=== PATIENT | male | born 1965 | race Caucasian/White ===

== ENCOUNTER → 2016-09-15 | Outpatient (CLI) | payer OTHER ==
[~2016-09-15] MED LIST: CEPH500C2 PO; ENAL10TA88 PO; HYDR-5688 PO
[2016-09-15 15:56] LABS: PARTIAL THROMBOPLASTIN RATIO 1.1; PROTHROMBIN TIME (PATIENT) 10.9 SECONDS (9.0-12.0)
[2016-09-15 16:10] LABS: BASO % 0.6 %; BASO ABS # 0.02 K/uL (0-0.2); COMPLETE YES; EOS % 3.6 %; HEMATOCRIT 34.1 % (42-52); IG% 0.6 %; LYMPH ABS # 1.32 K/uL (1.2-3.4); MEAN CELL VOLUME 85.3 fL (80-100); MEAN CORPUSCULAR HGB CONC 35.2 g/dl (32-36); MEAN PLATELET VOLUME 9.1 fL (7.4-10.4); MONO % 7.8 %; NEUT % 50.4 %; PLATELET COUNT 65 K/uL (130-400); PLT ESTIMATE DECREASED; WHITE BLOOD COUNT 3.57 K/uL (4.8-10.8)
[2016-09-15 16:24] LABS: BLOOD UREA NITROGEN 18 mg/dl (7-18); BUN/CREATININE RATIO 20.1 (10-20); CARBON DIOXIDE 20 mmol/L (21-32); CHLORIDE 108 mmol/L (98-107); CREATININE 0.88 mg/dl (0.60-1.40); GLUCOSE 171 mg/dl (70-99); SODIUM 140 mmol/L (136-145)
[2016-09-15 16:44] LABS: CALCIUM 8.9 mg/dl (8.5-10.1)
[2016-09-15 19:15] LABS: URINE APPEARANCE CLEAR (CLEAR); URINE COLOR DK YELLOW; URINE NITRITE NEG (NEG); URINE SPECIFIC GRAVITY 1.035 (1.000-1.030); UROBILINOGEN NEG (NEG)
[2016-09-15 19:21] LABS: MANUAL MICROSCOPIC REQUIRED? NO; REVIEW REQ? NO; URINE BILIRUBIN NEG (NEG)
== END | disposition home or self-care (01) ==
LOC: C.LAB 15:03
DX: M71.121 Other infective bursitis, right elbow (principal)

== ENCOUNTER → 2016-09-18 | Day surgery (SDC) | payer OTHER ==
--- NOTE | 2016-09-17 12:51 | HISTORY & PHYSICAL EXAMINATION ---
DATE OF ADMISSION: 09/18/2016 CHIEF COMPLAINT: Recurrent right elbow wound drainage. HISTORY OF PRESENT ILLNESS: The patient is a 51-year-old gentleman approximately 11 months status post surgical excision of olecranon bursitis of his right elbow. He states it never completely quit draining postoperatively but more recently presented for evaluation due to increased swelling and drainage. He had a short trial of oral antibiotics and continues to have an open wound. He is now scheduled for an I&D of the right elbow. PAST MEDICAL HISTORY: Hypertension, low back pain. PAST SURGICAL HISTORY: Right elbow as above, otherwise unknown. MEDICATIONS: Percocet for back pain. ALLERGIES: No known drug allergies. SOCIAL HISTORY: He states a [id number] smoking history and daily alcohol use. PHYSICAL EXAMINATION: GENERAL: Well-nourished, well-developed male who appears older than his stated age. He smells of tobacco use. HEAD, EYES, EARS, NOSE, AND THROAT: Normocephalic, atraumatic. Extraocular movements intact. Oropharynx pink and moist. NECK: Supple without adenopathy. LUNGS: Clear to auscultation bilaterally. HEART: Regular rate and rhythm. ABDOMEN: Soft, nontender, nondistended. EXTREMITIES: The right elbow demonstrates a previous scar from his previous olecranon bursectomy. The central portion has approximately 1 cm central opening present. There is no purulent drainage. ASSESSMENT: Chronic wound drainage right elbow status post previous olecranon bursectomy. PLAN: The above discussed with patient. We would recommend a surgical I&D and several days of IV antibiotics in the hospital. Will proceed as indicated.
[~2016-09-18] MED LIST changes: +LACTATED RINGER'S 1000ML 1,000 ML IV SCH
== END | disposition home or self-care (01) ==
LOC: C.ACU 10:29
DX: S51.001A Unspecified open wound of right elbow, initial encounter (principal); Y84.8 Other medical procedures as the cause of abnormal reaction of the patient, or of later complication, without mention of misadventure at the time of the procedure; Z53.09 Procedure and treatment not carried out because of other contraindication; I10 Essential (primary) hypertension; M54.5 Low back pain; F17.200 Nicotine dependence, unspecified, uncomplicated

== ENCOUNTER 2019-07-06 14:16 | Inpatient (IN) ==
[2019-07-06] MEDS ORDERED: ONDANSETRON INJ 2 MG/ML 2 ML VIAL IV STA (14:38)
[2019-07-06] MEDS ORDERED: MoRPHine SULFATE 4 MG/ML 1 ML CARP\\VIAL IV STA (14:38)
--- NOTE | 2019-07-06 14:43 | Emergency Department Note ---
History of Present Illness General Chief complaint: GI Assessment Stated complaint: vomiting blood, abdominal pain Time Seen by Provider: 07/06/19 14:28 Source: patient Mode of arrival: ambulatory Limitations: no limitations History of Present Illness Maximum Pain Intensity: 10 This patient comes in as described above he has epigastric abdominal pain is been vomiting for several days he says it looks black. He is also had black stool. He denies that he is on any blood thinners been taking any NSAIDs. He did take half a Percocet on the way out but denies that he normally takes those meds. He has not had any alcohol for over 6 months and tells me he never was a significantly heavy drinker. No trauma. He does have some chronic back issues. No abdominal surgeries. Denies chest pain or shortness of breath. No sick contacts or fever. Home Medications Home Medications Medication Instructions Recorded Confirmed Type enalapril maleate 20 mg PO QAM 07/06/19 07/06/19 History Allergies Allergy/AdvReac Type Severity Reaction Status Date / Time No Known Allergies Allergy Unverified 07/06/19 16:45 Past Med/Surg History Medical History Alcohol use Atrial flutter (Acute) Chronic hepatitis C Cirrhosis H/O intravenous drug use in remission Tobacco use Family History (Updated 07/06/19 @ 18:52 by Monty Spivey) Other Family history non-contributory Social History (Updated 07/06/19 @ 18:53 by Monty Spivey) Preferred Language: Luxembourgish Communication Ability: Effective Stripping Cutter And Winder Required: No Beliefs That Will Affect Care: None Current Living Situation: Significant Other Current Living Situation Comment: lives in [place] Other Information That Helps Us Care for You: No Feels Safe at Home: Yes Safety Concerns: Feels Safe At This Time Smoking Status: Current every day smoker Tobacco Type: cigarettes ; Cigarettes Per Day: 4 ; Do You Dip or Chew Tobacco: No ; Second Hand Exposure: No ; Tobacco Cessation Education Requested by Patient: Yes Hx Alcohol Use: No (Quit 7 months ago) Hx Substance Use: No Immunizations: Additional past medical/surgical history: Patient has not been here in the recent past. He tells me he does have a past medical history of hypertension but denies any history of GI bleed or abdominal surgery. He does have a surgical history on his back. He does smoke but does not drink. Review of Systems A total of 10 systems reviewed and were otherwise negative Physical Exam Vital Signs Vital Signs - 24 hr 07/06/19 14:21 07/06/19 14:52 07/06/19 14:57 Temperature 36.5 C Temperature Source Oral Pulse Rate 152 H 150 H 151 H Pulse Rate from SpO2 Sensor 151 H 151 H Respiratory Rate 20 17 15 Respiratory Depth Normal Blood Pressure 130/90 122/100 Blood Pressure Mean 103 106 Blood Pressure Position Sitting Pulse Oximetry 100 100 100 Oxygen Delivery Method Room Air Sepsis Recent Fever Within 48 Hours No Sepsis Action Taken by Nursing No Action Required 07/06/19 15:00 07/06/19 15:01 07/06/19 15:30 Temperature Temperature Source Pulse Rate 150 H 150 H 147 H Pulse Rate from SpO2 Sensor 151 H 151 H Respiratory Rate 20 15 Respiratory Depth Blood Pressure 124/103 H 131/95 Blood Pressure Mean 107 100 Blood Pressure Position Pulse Oximetry 99 100 Oxygen Delivery Method Sepsis Recent Fever Within 48 Hours Sepsis Action Taken by Nursing 07/06/19 16:21 07/06/19 16:30 Temperature Temperature Source Pulse Rate 143 H 146 H Pulse Rate from SpO2 Sensor 144 H 145 H Respiratory Rate 17 21 Respiratory Depth Blood Pressure 133/94 Blood Pressure Mean 114 Blood Pressure Position Pulse Oximetry 99 100 Oxygen Delivery Method Sepsis Recent Fever Within 48 Hours Sepsis Action Taken by Nursing General: Well developed well nourished uncomfortable/moderate ill-appearing middle-age male who appears in no acute aspiratory distress, breathing comfortably on room air. Normal speech HEENT: Normal cephalic atraumatic. Pupils are equal round and reactive to light. Sclera anicteric. Extraocular movements are intact. Oropharynx is pink with moist mucous membranes. No swelling of the mouth lips or tongue. Neck: Supple with a midline trachea. No meningeal signs or stiffness, no JVD or bruits. No Stridor. Chest: Clear to auscultation bilaterally. No wheezes or rhonchi. No increased work of breathing. Heart: Regular rate and rhythm without murmurs or gallops. Abdomen: Soft, moderately tender to palpation in the epigastric area, nondistended without rebound guarding or rigidity. Extremities: No cyanosis clubbing or edema. No calf tenderness or assymetry Spine/Back. Non tender to palpation. No CVA tenderness Skin: Good turgor without rashes. Neurologic exam: Cranial nerves two through 12 are intact. Motor and sensation are intact and symmetrical throughout. Course Administered Medications Esmolol HCl (Brevibloc) 2,500 mg in 250 mls @ 73.62 mls/hr IV .Q3H24M LOUIS; Protocol Stop: 08/05/19 16:14 Last Titration: 07/06/19 17:52 Dose: 150 mcg/kg/min, 73.6 mls/hr Documented by: [id number] Titration: 07/06/19 16:59 Dose: 100 mcg/kg/min, 49.1 mls/hr Documented by: [id number] Admin: 07/06/19 16:46 Dose: 50 mcg/kg/min, 24.5 mls/hr Documented by: [id number] Cosigned by: [id number] Ioversol (Optiray 320 100ml) 94 ml IV ONCE PRN PRN Reason: Interaction Checking Stop: 07/10/19 16:07 Last Admin: 07/06/19 16:08 Dose: 94 ml Documented by: [id number] Discontinued Medications Esmolol HCl (Brevibloc Bolus From Bag) 40 mg IV ONE ONE Stop: 07/06/19 16:16 Last Admin: 07/06/19 16:44 Dose: 40 mg Documented by: [id number] Cosigned by: [id number] Hydromorphone HCl (Dilaudid) 1 mg IV NOW STA Stop: 07/06/19 15:09 Last Admin: 07/06/19 15:16 Dose: 1 mg Documented by: [id number] Pantoprazole Sodium 80 mg/ (Dextrose) 120 mls @ 480 mls/hr IV NOW ONE Stop: 07/06/19 14:59 Last Infusion: 07/06/19 15:25 Dose: 0 mls/hr Documented by: [id number] Admin: 07/06/19 15:04 Dose: 480 mls/hr Documented by: [id number] Pantoprazole Sodium 40 mg/ (Dextrose) 100 mls @ 20 mls/hr IV Q5H LOUIS Stop: 08/05/19 14:44 Last Admin: 07/06/19 15:25 Dose: 8 mg/hr, 20 mls/hr Documented by: [id number] Sodium Chloride (Nss 1000ml) 1,000 mls @ 999 mls/hr IV .Q1H1M LOUIS Stop: 07/06/19 15:45 Last Infusion: 07/06/19 16:13 Dose: 0 mls/hr Documented by: [id number] Admin: 07/06/19 15:04 Dose: 999 mls/hr Documented by: [id number] Sodium Chloride (Nss 1000ml) 1,000 mls @ 999 mls/hr IV .Q1H1M ONE Stop: 07/06/19 16:08 Last Infusion: 07/06/19 16:13 Dose: 0 mls/hr Documented by: [id number] Admin: 07/06/19 15:11 Dose: 999 mls/hr Documented by: [id number] Morphine Sulfate (Morphine Sulfate) 4 mg IV NOW STA Stop: 07/06/19 14:39 Last Admin: 07/06/19 15:03 Dose: 4 mg Documented by: [id number] Ondansetron HCl (Zofran) 4 mg IV NOW STA Stop: 07/06/19 14:39 Last Admin: 07/06/19 15:04 Dose: 4 mg Documented by: [id number] Critical Care Time Critical Care Time: Yes Total Critical Care Time: 45 Because of the patient's GI bleed, A. fib/tachycardia and need for multiple IV medications and intervention as well as transfusion, I have personally spent greater than 45 minutes of critical care time in the direct management of this patient. This includes bedside care, interpretation of diagnostic studies, and testing, discussion with consultants, patient, and family members, and other required patient management activities. This 45 minutes is in excess of all separately billable procedures. Medical Decision Making Differential Diagnosis Includes but is not limited to: GI bleed, anemia, peptic ulcer disease, variceal bleeding, toxicologic, electrolyte or metabolic abnormality, cardiac disease, trauma Medical Records Attestation: I reviewed the patient's medical records. There were no old records immediately available for review Home Medications Current Medication List: was personally reviewed by [id number] Laboratory Data Attestation: I reviewed the patient's lab results. Result diagrams: 07/06/19 14:51 07/06/19 14:51 Lab Results 07/06/19 07/06/19 07/06/19 Range/Units 14:51 14:51 14:51 WBC 10.15 (4.8-10.8) K/uL RBC 3.25 L (4.7-6.1) M/uL Hgb 8.5 L (14.0-18.0) g/dL Hct 25.3 L (42-52) % MCV 77.8 L (80-100) fL MCH 26.2 (25-34) pg MCHC 33.6 (32-36) g/dL RDW Std Deviation 46.2 (36.4-46.3) fL RDW Coeff of Saurav 16.3 H (11.5-14.5) % Plt Count 238 (130-400) K/uL MPV 9.3 (7.4-10.4) fL Immature Gran % (Auto) 0.3 % Neut % (Auto) 67.2 % Lymph % (Auto) 24.5 % [place] % (Auto) 6.3 % Eos % (Auto) 1.3 % Baso % (Auto) 0.4 % Immature Gran # (Auto) 0.03 H (0.00-0.02) K/uL Neut # (Auto) 6.82 H (1.4-6.5) K/uL Lymph # (Auto) 2.49 (1.2-3.4) K/uL [place] # (Auto) 0.64 H (0.11-0.59) K/uL Eos # (Auto) 0.13 (0-0.5) K/uL Baso # (Auto) 0.04 (0-0.2) K/uL PT (9.0-12.0) Seconds INR (0.9-1.1) Sodium 133 L (136-145) mmol/L Potassium 4.6 (3.5-5.1) mmol/L Chloride 102 (98-107) mmol/L Carbon Dioxide 27 (21-32) mmol/L Anion Gap 4.0 (3-11) BUN 43 H (7-18) mg/dl Creatinine 0.97 (0.6-1.4) mg/dl Est Cr Clr Drug Dosing Not Reportable Est GFR ( Amer) 100.7 Est GFR (Non-Af Amer) 86.9 BUN/Creatinine Ratio 44.8 H (10-20) Glucose 177 H (70-99) mg/dl Calcium 8.5 (8.5-10.1) mg/dl Magnesium 2.4 (1.8-2.4) mg/dl Total Bilirubin 0.5 (0.2-1) mg/dl AST 19 (15-37) U/L ALT 36 (12-78) U/L Alkaline Phosphatase 89 (45-117) U/L Total Protein 6.0 L (6.4-8.2) gm/dl Albumin 2.4 L (3.4-5.0) gm/dl Globulin 3.6 (2.5-4.0) gm/dl Albumin/Globulin Ratio 0.7 L (0.9-2) Lipase 425 H (73-393) U/L Blood Type A Positive Antibody Screen NEGATIVE Crossmatch See Detail 07/06/19 Range/Units 14:52 WBC (4.8-10.8) K/uL RBC (4.7-6.1) M/uL Hgb (14.0-18.0) g/dL Hct (42-52) % MCV (80-100) fL MCH (25-34) pg MCHC (32-36) g/dL RDW Std Deviation (36.4-46.3) fL RDW Coeff of Saurav (11.5-14.5) % Plt Count (130-400) K/uL MPV (7.4-10.4) fL Immature Gran % (Auto) % Neut % (Auto) % Lymph % (Auto) % [place] % (Auto) % Eos % (Auto) % Baso % (Auto) % Immature Gran # (Auto) (0.00-0.02) K/uL Neut # (Auto) (1.4-6.5) K/uL Lymph # (Auto) (1.2-3.4) K/uL [place] # (Auto) (0.11-0.59) K/uL Eos # (Auto) (0-0.5) K/uL Baso # (Auto) (0-0.2) K/uL PT 10.8 (9.0-12.0) Seconds INR 1.0 (0.9-1.1) Sodium (136-145) mmol/L Potassium (3.5-5.1) mmol/L Chloride (98-107) mmol/L Carbon Dioxide (21-32) mmol/L Anion Gap (3-11) BUN (7-18) mg/dl Creatinine (0.6-1.4) mg/dl Est Cr Clr Drug Dosing Est GFR ( Amer) Est GFR (Non-Af Amer) BUN/Creatinine Ratio (10-20) Glucose (70-99) mg/dl Calcium (8.5-10.1) mg/dl Magnesium (1.8-2.4) mg/dl Total Bilirubin (0.2-1) mg/dl AST (15-37) U/L ALT (12-78) U/L Alkaline Phosphatase (45-117) U/L Total Protein (6.4-8.2) gm/dl Albumin (3.4-5.0) gm/dl Globulin (2.5-4.0) gm/dl Albumin/Globulin Ratio (0.9-2) Lipase (73-393) U/L Blood Type Antibody Screen Crossmatch ECG Data Attestation: I personally reviewed and interpreted this ECG as follows: Indication: + abdominal pain MDM Narrative This patient comes in as described above. He was placed in room C9. He is here for treatment and evaluation of abdominal pain. He is also been throwing up black material he tells me. He is tachycardic but normotensive. He appears uncomfortable he is moderately tender in epigastric area. He does have a remote history of drinking. IV access established he was hydrated with a 1 L IV normal saline bolus. He was typed and screened in the event that he needed blood. He was given a Protonix IV drip and bolus. EKG chest x-ray multiple blood testing was obtained. He was reassessed frequently. He did have morphine 4 mg IV and Zofran 4 mg IV for his pain. Despite this he continued pain was tachycardic we did do an EKG and actually looks more like flutter at a rate of 150. He did receive a second 1 L normal saline bolus I did a rectal exam and he has black stool that was guaiac positive. Despite having heart rate of 150 he does not have any palpitations or chest pain therefore I do not know how long he has been like this. At this point, he also with a GI bleed, he is not a good anticoagulation candidate. I did review his records that were obtained from [place]. Back in February his hemoglobin was 12.1. Today it is 8.5. He had been typed and screened I did order him to be typed and crossed and ordered a unit to be transfused. I am concerned with the fact he is very tachycardic. I did consent the patient for blood transfusion I explained the risk and the benefits at length and he freely consented both verbally and in writing. I also talked to Dr. Franco who reviewed his EKG and agrees is a flutter. I discussed this with our ED pharmacist, Lalitha, and we feel the safest drug for him system for rate control would be esmolol that way if his pressure drops, we can back off on this. I am also going to transfuse him. Patient was started on esmolol bolus and drip and has remained stable. His heart rate is trending downward in the 130s now. He has received IV fluids. I did order a CAT scan of his abdomen as well to rule out any internal bleeding or other abnormalities. CAT scan does not show any acute findings however he does have a cirrhotic liver. I did consult the [facility] hospitalist and they saw him in the ER and will be admitting him to the ICU. Cardiac monitoring, continuous-the patient was placed on continuous monitoring and evaluation advisor due to his tachycardia and pain. He was noted to be 150 and a narrow complex tachycardia consistent with a flutter Impression & Plan Acute GI bleeding, Melena, Epigastric abdominal pain, Nausea, Atrial flutter, Tachycardia Discharge Plan Visit Data Chief Complaint: GI Assessment Stated Complaint: vomiting blood, abdominal pain ED Provider: Renzo Rivas Discharge Problem: Acute GI bleeding, Melena, Epigastric abdominal pain, Nausea, Atrial flutter, Tachycardia Patient Disposition: Admitted As Inpatient Discharge Instructions Interventions: ED Discharge Assessment Last Done: 07/06/19 18:52 Discharge Problem: Atrial flutter Qualifiers: Atrial flutter type: unspecified Qualified Code(s): I48.92 - Unspecified atrial flutter
[2019-07-06] MEDS ORDERED: SODIUM CHLORIDE 0.9% 1000ML 1,000 ML IV SCH (14:45)
[2019-07-06] MEDS ORDERED: PANTOprazole 40 MG in DEXTROSE 5% 100 ML IV SCH (14:45)
[2019-07-06] MEDS ORDERED: PANTOprazole 80 MG in DEXTROSE 5% 100 ML IV ONE (14:45)
[2019-07-06] MEDS ORDERED: HYDROmorphone INJ 1 MG/ML SYRINGE IV STA (15:08)
[2019-07-06] MEDS ORDERED: SODIUM CHLORIDE 0.9% 1000ML 1,000 ML IV ONE (15:08)
[2019-07-06 15:22] LABS: Calcium 8.5 mg/dl (8.5-10.1); Chloride 102 mmol/L (98-107); Potassium 4.6 mmol/L (3.5-5.1); Sodium 133 mmol/L (136-145)
[2019-07-06 15:25] LABS: Alanine Aminotransferase 36 U/L (12-78); Albumin Level 2.4 gm/dl (3.4-5.0); Aspartate Aminotransferase 19 U/L (15-37); BUN Creatinine Ratio 44.8 (10-20); Blood Urea Nitrogen 43 mg/dl (7-18); Carbon Dioxide 27 mmol/L (21-32); Est GFR (African American) 100.7; Est GFR (Non-African American) 86.9; Glucose 177 mg/dl (70-99); Lipase 425 U/L (73-393)
[2019-07-06 15:28] LABS: Albumin Globulin Ratio 0.7 (0.9-2); Alkaline Phosphatase 89 U/L (45-117); Bilirubin,Total 0.5 mg/dl (0.2-1); Globulin 3.6 gm/dl (2.5-4.0); Magnesium 2.4 mg/dl (1.8-2.4)
[2019-07-06 15:42] LABS: Basophils # (auto) 0.04 K/uL (0-0.2); Basophils % (auto) 0.4 %; Eosinophils # (auto) 0.13 K/uL (0-0.5); Eosinophils % (auto) 1.3 %; Hematocrit (blood only) 25.3 % (42-52); Hemoglobin 8.5 g/dL (14.0-18.0); Immature Granulocytes # (auto) 0.03 K/uL (0.00-0.02); Immature Granulocytes % (auto) 0.3 %; Lymphocytes # (auto) 2.49 K/uL (1.2-3.4); Lymphocytes % (auto) 24.5 %; Mean Corpuscular Hemoglobin 26.2 pg (25-34); Mean Corpuscular Hgb Conc 33.6 g/dL (32-36); Mean Corpuscular Volume 77.8 fL (80-100); Mean Platelet Volume 9.3 fL (7.4-10.4); Monocytes # (auto) 0.64 K/uL (0.11-0.59); Monocytes % (auto) 6.3 %; Neutrophils # (auto) 6.82 K/uL (1.4-6.5); Neutrophils % (auto) 67.2 %; Platelet Count 238 K/uL (130-400); RDW Coefficient of Variation 16.3 % (11.5-14.5); RDW Standard Deviation 46.2 fL (36.4-46.3); Red Blood Count 3.25 M/uL (4.7-6.1); White Blood Count 10.15 K/uL (4.8-10.8)
[2019-07-06] MEDS ORDERED: SODIUM CHLORIDE 0.9% 250 ML IV PRN (15:46)
[2019-07-06] MEDS ORDERED: IOVERSOL 100ml IV PRN (16:08)
[2019-07-06] MEDS ORDERED: ESMOLOL BOLUS FROM BAG IV ONE (16:15)
--- NOTE | 2019-07-06 16:25 | XRay Report ---
SINGLE VIEW CHEST CLINICAL HISTORY: Epigastric abdominal pain. FINDINGS: 2 AP, portable, upright chest radiographs are obtained. No prior studies are available for comparison at the time of dictation. The examination is degraded by portable technique and patient ro tation. The cardiomediastinal silhouette is unremarkable. The lungs and pleural spaces are clear. No pneumothorax is seen. There are healed left-sided rib fractures. There is chronic posttraumatic defo rmity of the left clavicle. Surgical anchors are noted in the right humeral head. Superior subluxatio n of both humeral heads suggest chronic rotator cuff injuries. IMPRESSION: No active disease in the chest. ACT 112: Negative or not required by law. Electronically signed by: Hossein Suarez M.D. 07/06/2019 4:23 PM
--- NOTE | 2019-07-06 16:36 | CT Scan Report ---
CT OF THE ABDOMEN AND PELVIS WITH CONTRAST CLINICAL HISTORY: Abdominal pain. Anemia. GI bleed. COMPARISON STUDY: None. TECHNIQUE: Following IV administration of 94 mL of Optiray-320, axial images of the abdomen and pelvi s were obtained from the lung bases to the proximal femurs. Images were reviewed in the axial, sagitt al, and coronal planes. IV contrast was administered without complication. Automated exposure contro l was utilized for the study. A dose lowering technique was utilized adhering to the principles of A RAZ. CT DOSE: 478.30 mGycm FINDINGS: Imaged portions of the lower chest demonstrate bronchial wall thickening and secretions wit hin right lower lobe segmental bronchi. There are patchy groundglass opacities within the right lower lobe. Trace right pleural effusion is noted. No pneumatosis, free air or portal venous gas is present. Moderate splenomegaly is noted. There is mi ld irregularity of the liver surface indicative of cirrhosis. Sensitivity for detection of hypervascu lar lesions is diminished on this portal venous phase exam but no hepatic lesions are identified. The main, left and right portal veins are patent. There is no biliary or pancreatic ductal dilatation. T he stomach is fluid-filled and moderately distended. The distal esophagus is also fluid-filled and di stended. There is distal esophageal wall thickening as well as apparent wall thickening of the gastri c cardia. Mildly enlarged upper abdominal lymph nodes are noted. Index gastrohepatic ligament lymph n ode on image 56 of 446 measures 1.1 cm in short axis diameter. Index portacaval node on image 100 bhaskar sures 1.5 cm. Calcifications within each renal sinus favor vascular calcifications although nonobstru cting renal calculi could appear similar. There is no hydronephrosis. There are no ureteral calculi. Caliber and wall thickness of small and large bowel are normal. There is no ascites. The appendix is normal. Major vasculature is patent. No suspicious osseous lesions are present. IMPRESSION: 1. Cirrhotic liver with moderate splenomegaly indicative of portal hypertension. No ascites. 2. Fluid-filled, distended distal esophagus with wall thickening. This favors esophagitis. Prominent gastric folds within the cardia which may reflect gastritis. A mucosal lesion is considered less like ly but cannot be excluded. Nonemergent endoscopy is recommended. Moderately distended, fluid-filled s tomach. 3. Multiple mildly enlarged upper abdominal lymph nodes which are nonspecific but may be related to c hronic liver disease. 4. Mild groundglass opacities within the right lower lobe with a trace right pleural effusion and bro nchial wall thickening with secretions within the right lower lobe segmental bronchi. This could refl ect an infectious process or aspiration. ACT 112: Negative or not required by law. Electronically signed by: Darell Izquierdo M.D. 07/06/2019 4:35 PM
[2019-07-06] MEDS ORDERED: ACETAMINOPHEN 325 MG TAB PO PRN (16:37)
[2019-07-06] MEDS ORDERED: ONDANSETRON INJ 2 MG/ML 2 ML VIAL IV PRN (16:37)
[2019-07-06] MEDS: ESMOLOL / NSS 2,500 MG/250 ML BAG IV SCH ×3 (16:46→23:55)
--- NOTE | 2019-07-06 16:55 | History & Physical Report ---
Date of Service July 06, 2019 Assessment & Plan (1) Acute GI bleeding: -Admit to ICU -GI consulted, Dr. Massey for possible EGD -Continue Protonix IV BID, gtt and bolus given in the ER with bleed -Start octreotide for possible esophageal varices with hx of etoh use and hep C -Continue NSS at 80 mL/h -type and screen completed, transfuse 1 unit PRBC now -Recheck hemoglobin at 2200after unit, trend with a.m. labs - CT abd reviewed: Cirrhotic liver with moderate splenomegaly indicative of portal hypertension. No ascites. Fluid-filled, distended distal esophagus with wall thickening. This favors esophagitis. Prominent gastric folds within the cardia which may reflect gastritis. A mucosal lesion is considered less likely but cannot be excluded. Nonemergent endoscopy is recommended. Moderately distended, fluid-filled stomach. Multiple mildly enlarged upper abdominal lymph nodes which are nonspecific but may be related to chronic liver disease. Mild groundglass opacities within the right lower lobe with a trace right pleural effusion and bronchial wall thickening with secretions within the right lower lobe segmental bronchi. This could reflect an infectious process or aspiration. -If changes in respiratory status would consider placing on IV Zosyn for possible aspiration with results as per CT showing groundglass opacities within the RLL and a trace right pleural effusion. WBC = 10, afebrile, no supplemental O2 requirements presently. (2) Cirrhosis: - Secondary to chronic hep C, reveiwed CT of -continue esmolol and octreotide drip as above (3) Chronic hepatitis C: -Noted, chronic, likely secondary to IVDA - AST, ALT and Alk phos WNL - Check INR now (4) Atrial flutter: -Will consult [facility] cardiology as pt did not want to follow with [facility]. -Per ER attending, case was discussed with Dr. Franco over the phone, EKG was reviewed and thought to be in a flutter and started on esmolol gtt, will continue - pt admitted to ICU as esmolol gtt must be managed there. - on recheck of the patient heart rate is coming down, in the 140s versus 150s -EKG reviewed as per chart -Last echo completed in February 2019 at [facility], [place], EF =55 to 60%, left ventricular cavity size is normal, wall thickness was normal, no wall wall motion abnormalities noted, no thrombus. Will recheck now with tachycardia and not being on any cardioprotective medications since February (lopressor, cardizem and eliquis were supposed to be initiated for afib and ablation therapy in the future) -He was supposed to start on Eliquis in February 2019 for stroke prophylaxis and was to be scheduled as an outpatient for possible ablation therapy, however the patient did not follow-up, he was initially supposed to follow-up with Dr. Huff, cardiology [facility] - Trend troponins (5) H/O intravenous drug use in remission: -History of such, IV cocaine, denies active drug use on admission. (6) Tobacco use: - nicotine patch ordered for tomorrow, for now with heart rate in the 140s to 150s - Currently on room air (7) Alcohol use: - Hx of such --pt reports last drink was 7 months ago however per [facility] documentation his last drink was prior to his admission there. He was drinking 3-8 beers twice a week per their records - monitor for any signs of withdrawal while admitted (8) DVT prophylaxis: -teds, no chemical ppx in the setting of GI bleed. CODE: FULL Dispo: From home, likely d/c in 2 days. History of Present Illness Primary Care Provider: Facundo Broderick PA-C This is a 54 yo M with PMHx of HTN and atrial flutter, chronic Hepatitis C, hx of IVDA with cocaine many years ago, etoh use, and currently smokes 3-4 cig per day but trying to quit who presents with worsening abdominal pain x few days. He notes he has had increased abdominal pain x1 month. It is chronic, waxing and waning, worse whenever he eats something, in the epigastric region, and admits to bouts of constipation within the past 1 week. He reports taking large quantities of Mylanta for heartburn and MiraLAX for constipation. He had a large bowel movement this morning which was dark and tarry. He denies any bright red blood per rectum, no history of known hemorrhoids, no blood seen with wiping. Patient was in [facility] several months ago for similar complaints to get an EGD and was scheduled for an colonoscopy for workup for food getting stuck in throat, nausea, and abdominal pain. He did not have the procedure secondary to elevated heart rate. Patient left AMA from [facility] without any follow-up as he describes his care was very poor, and did not want to see any of their staff in follow-up. Per outpatient records from [facility] he was admitted in March 09, 2019 to March 10 for episode of chest pain, hypertension, and indigestion found to have A. fib with RVR. He was supposed to start Lopressor and Cardizem p.o. at that time as well as Eliquis for possible ablation therapy and CHADs- VASC = 1. His hemoglobin at that time was 12.1. Allergies Allergy/AdvReac Type Severity Reaction Status Date / Time No Known Allergies Allergy Unverified 07/06/19 16:45 Home Medications Home Medications Medication Instructions Recorded Confirmed Type enalapril maleate 20 mg PO QAM 07/06/19 07/06/19 History Past Med/Surg History Medical History Alcohol use Atrial flutter (Acute) Chronic hepatitis C Cirrhosis H/O intravenous drug use in remission Tobacco use Family History (Updated 07/06/19 @ 18:52 by Monty Spivey) Other Family history non-contributory Social History (Updated 07/06/19 @ 18:53 by Monty Spivey) Current Living Situation Comment: lives in [place] Feels Safe at Home: Yes Smoking Status: Current every day smoker Hx Alcohol Use: Yes Alcohol Intake Frequency Comment: reports quitting 7 months ago Hx Substance Use: Yes substance use type: crack/cocaine and IV drugs Review of Systems Review of Systems: Constitutional: No fever, sweats or chills Eyes: No diplopia, no worsening or blurred vision ENT: normal hearing, no trouble swallowing Respiratory: No cough, sputum, dyspnea at rest or on exertion Cardiovascular: + left sided chest pain, denies tightness or palpitations, + worsening chest pain with dep breaths Abdomen: As per HPI + pain, +nausea, +vomiting, +diarrhea or constipation Musculoskeletal: No joint pain, calf pain, swelling Neurologic: + Generalized weakness, numbness/tingling, or balance problems Psychiatric: No anxiety or depression Skin: No rash or itch Physical Exam Physical Exam: General: awake, alert, no apparent distress, + fatigue, + wearing pajama pants which is patterned with beer mug images Head: Normocephalic, atraumatic ENT: PERRL, EOMI, no pharyngeal exudate, mucous membranes moist Chest: +diminished breath sounds bibasilarly, on room air, no adventitious breath sounds Cardiac: +Sinus tach with HR in 140s, no murmur, no JVD, normal peripheral pulses, good capillary refill Abdominal: NABS x 4 quadrants, soft, nondistended, + LUQ and epigastric region tenderness to palpation, no rebound, no guarding Extremities: Normal inspection, no peripheral edema or erythema, calfs nontender to palpation Psych: Normal mood and affect Neuro: AAO x 3, strength intact bilaterally and rated 5/5, no motor deficits, speech is clear, no peripheral sensory deficits Skin: no rash or erythema Results & Data Results & Data ([facility]) Vital Signs (Past 12 Hours) Vital Signs Temp Pulse Resp BP Pulse Ox 07/06/19 14:21 36.5 C 152 H 20 130/[address] OF THE ABDOMEN AND PELVIS WITH CONTRAST CLINICAL HISTORY: Abdominal pain. Anemia. GI bleed. COMPARISON STUDY: None. TECHNIQUE: Following IV administration of 94 mL of Optiray-320, axial images of the abdomen and pelvis were obtained from the lung bases to the proximal femurs. Images were reviewed in the axial, sagittal, and coronal planes. IV contrast was administered without complication. Automated exposure control was utilized for the study. A dose lowering technique was utilized adhering to the principles of ALARA. CT DOSE: 478.30 mGycm FINDINGS: Imaged portions of the lower chest demonstrate bronchial wall thickening and secretions within right lower lobe segmental bronchi. There are patchy groundglass opacities within the right lower lobe. Trace right pleural effusion is noted. No pneumatosis, free air or portal venous gas is present. Moderate splenomegaly is noted. There is mild irregularity of the liver surface indicative of cirrhosis. Sensitivity for detection of hypervascular lesions is diminished on this portal venous phase exam but no hepatic lesions are identified. The main, left and right portal veins are patent. There is no biliary or pancreatic ductal dilatation. The stomach is fluid-filled and moderately distended. The distal esophagus is also fluid-filled and distended. There is distal esophageal wall thickening as well as apparent wall thickening of the gastric cardia. Mildly enlarged upper abdominal lymph nodes are noted. Index gastrohepatic ligament lymph node on image 56 of 446 measures 1.1 cm in short axis diameter. Index portacaval node on image 100 measures 1.5 cm. Calcifications within each renal sinus favor vascular calcifications although nonobstructing renal calculi could appear similar. There is no hydronephrosis. There are no ureteral calculi. Caliber and wall thickness of small and large bowel are normal. There is no ascites. The appendix is normal. Major vasculature is patent. No suspicious osseous lesions are present. IMPRESSION: 1. Cirrhotic liver with moderate splenomegaly indicative of portal hypertension. No ascites. 2. Fluid-filled, distended distal esophagus with wall thickening. This favors esophagitis. Prominent gastric folds within the cardia which may reflect gastritis. A mucosal lesion is considered less likely but cannot be excluded. Nonemergent endoscopy is recommended. Moderately distended, fluid-filled stomach. 3. Multiple mildly enlarged upper abdominal lymph nodes which are nonspecific but may be related to chronic liver disease. 4. Mild groundglass opacities within the right lower lobe with a trace right pleural effusion and bronchial wall thickening with secretions within the right lower lobe segmental bronchi. This could reflect an infectious process or aspiration. ACT 112: Negative or not required by law. Electronically signed by: Darell Izquierdo M.D. 07/06/2019 4:35 PM SINGLE VIEW CHEST CLINICAL HISTORY: Epigastric abdominal pain. FINDINGS: 2 AP, portable, upright chest radiographs are obtained. No prior studies are available for comparison at the time of dictation. The examination is degraded by portable technique and patient rotation. The cardiomediastinal silhouette is unremarkable. The lungs and pleural spaces are clear. No pneumothorax is seen. There are healed left-sided rib fractures. There is chronic posttraumatic deformity of the left clavicle. Surgical anchors are noted in the right humeral head. Superior subluxation of both humeral heads suggest chronic rotator cuff injuries. IMPRESSION: No active disease in the chest. ACT 112: Negative or not required by law. Electronically signed by: Hossein Suarez M.D. 07/06/2019 4:23 PM ECG Additional Comments: 06-JUL-2019 14:58:16 [facility]-EDSTAT ROUTINE RETRIEVAL Sinus tachycardia Non-specific intra-ventricular conduction block Abnormal ECG When compared with ECG of 06-JUL-2019 14:57, (unconfirmed) No significant change was found 25mm/s 10mm/mV 150Hz 9.0.9 12SL 241 VANNA: 15 Unconfirmed Vent. rate 150 BPM WI interval 132 ms QRS duration 162 ms QT/QTc 320/505 ms P-R-T axes * 17 -71 Code Status & VTE Plan Code Status Full Code - discussed with the pt at bedside Supervising Physician Co-Signing Physician Notes Attending Attestation and Admission Note: Pt seen/examined, chart reviewed, admission care plan d/w TEODORO Macias. I agree w/ the scott components of her admission documentation. 54yo male with history of polysubstance abuse (etoh, tobacco, and prior h/o IV drug abuse now in remission), PAF, and cirrhosis 2nd to HepC who presents w/ c/o abdominal pain. He has also had melena stools and what sounds like coffee- ground emesis. Upon presentation today found to be in rapid a.flutter and have acute blood loss anemia. During my bedside visit he c/o abd pain and requests pain meds for such. PMH, PSH, allergies, meds, sochx, famhx, ros - reviewed gen - chronically ill appearing, pale, NAD mouth - MMM heart - tachy, s1 s2, no murmur lungs - mild-moderate b/l wheezes abd - tender high-epigastric region, BS+, liver edge not palpable ext - no edema, fingernail clubbing labs - Hb 8.5 Cr 0.9 glucose 177 A1c pending Na [address] abd/pelvis reviewed A/P: 1. acute blood loss anemia 2nd to upper GI bleeding 2. upper GI bleeding - variceal? gastritis? esophagitis? combination? 3. cirrhosis 2nd to hepC +/- etoh 4. h/o IV drug abuse reportedly in remission 5. hyponatremia 6. hyperglycemia but no h/o DM 7. rapid a.flutter with prior h/o PAF by report PPI drip octreotide drip if this is variceal in etiology serial h/h's transfusional support as needed esmolol drip for a flutter; could trial cardizem if needed poor candidate for cardioversion given no anticoagulation, etc IV fluids await HbA1c pain meds place in ICU due to esmolol infusion and complexity of care Monty Spivey MD PG Care Time/CCT Total # of Minutes Spent Total Time Spent with Patient: Total time spent is greater than 50% in coordination of care (as documented) at patient's floor/unit and/or counseling patient: Coding Level of Care Code 69506 Initial In Care Lvl 3 Diagnoses Acute GI bleeding K92.2 Cirrhosis K74.60 Chronic hepatitis C B18.2 Atrial flutter I48.92 Atrial flutter type: unspecified H/O intravenous drug use in remission Z87.898 Tobacco use Z72.0 Alcohol use Z72.89 DVT prophylaxis Z29.9 (1) Atrial flutter Atrial flutter type: unspecified Qualified Code(s): I48.92 - Unspecified atrial flutter
[2019-07-06] MEDS ORDERED: MoRPHine SULFATE 2 MG/ML CARP IV STA (17:53)
[2019-07-06] MEDS: OCTREOTIDE ACETATE 500 MCG in 0.9 % SODIUM CHLORIDE 100 ML IV SCH (18:45)
[2019-07-06 19:03] LABS: Prothrombin Time 10.8 Seconds (9.0-12.0)
[2019-07-06] MEDS ORDERED: INFLUENZA VIRUS QUAD VACCINE 0.5 ML SYR IM ONE (19:17)
[2019-07-06] MEDS ORDERED: INFLUENZA ADMINISTRATION CHARGE ONE (19:17)
[2019-07-06] MEDS: SODIUM CHLORIDE 0.9% 1000ML 1,000 ML IV SCH (19:31)
[2019-07-06] MEDS: cefTRIAXone SODIUM 2,000 MG in DEXTROSE 5% 50 ML IV SCH (19:46)
--- NOTE | 2019-07-06 20:50 | Critical Care Consultation ---
Date of Consultation July 06, 2019 Assessment & Plan (1) Admitted to intensive care unit: Reason Critically Ill: 54-year-old male presenting with acute on chronic exacerbation of rapid A. fib as well as presumed upper GI bleed requiring close hemodynamic monitoring with transfusion of PRBCs as well as initiation of esmolol drip. NEURO - * CAM ICU: NEGATIVE * Pain: Patient reports chronic pain from lumbar spine injury in the past. In conversation with the patient, he previously was treated with Percocet and Ativan for ongoing discomfort. Would avoid narcotics or benzodiazepines in this patient if possible. CARDIAC/VASCULAR - * A flutter: * Titrate esmolol for rate control. * Support volume with transfusion to help as well. * Emergent cardioversion with any changes in hemodynamics. * Monitor on telemetry. RESPIRATORY - * History of tobacco abuse. GI/NUTRITION - * Upper GI bleed: * Patient alcoholic with history of hepatitis C and cirrhosis as well as upper GI bleed. * Continue octreotide and Protonix. * Support blood volume. * Rocephin for SBP coverage. * Appreciate GI recommendations. RENAL/LYTES - * No significant electrolyte derangements. * Maximize electrolytes in the setting of cardiac dysrhythmia. * IVF: NSS at 80 mL's per hour - * No concerns at this time. ENDO - * No history of diabetes or thyroid disease. * BSGs per unit protocol. ISS --> gtt per unit policy. HEME - * Acute blood loss anemia: * Secondary to upper GI bleed. * Transfuse PRBCs as needed. ID - * SBP coverage with rocephin. LINES/IV ACCESS - * PIVs x2 DVT PROPHYLAXIS - * Hold on chemoprophylaxis 2/2 UGIB. * SCDs I have personally spent 35 minutes of critical care time in the direct managem ent of this patient. This is a life/limb threatening event. This includes time spent evaluating patient, direct bedside care, chart review, placing orders, interpretation of diagnostic studies, discussion with consultants, patient, and family members, as well as other required patient management activities. This time is exclusive of all separately billable procedures, and teaching time and separate from and in addition to any other critical care service time. Thank you for allowing us to participate in the care of this patient. Please refer to my attending physician's documentation for any further recommendations. (2) Atrial flutter: (3) Tachycardia: (4) Epigastric abdominal pain: (5) Melena: (6) Acute GI bleeding: (7) Tobacco use: (8) Chronic hepatitis C: (9) H/O intravenous drug use in remission: (10) Alcohol use: (11) Cirrhosis: Supervising Physician Co-Signing Physician Notes I saw and evaluated the patient with Jean-Paul Lobo, and agree with findings and plan as documented in the note. Patient came in with A. fib RVR and possible variceal bleed. Patient started on esmolol drip. It seems the patient is in a flutter. If the heart rate is not controlled with esmolol will consider digoxin. If there is hemodynamic instability we will cardiovert the patient. Cardiology on board will follow recommendations History of Present Illness Attending Physician: Monty Spivey History of Present Illness Patient is a 54-year-old male with a significant past medical history of hypertension, a flutter, alcoholism, smoking history, IV drug use, and hepatitis C. Patient presented with complaints of abdominal pain as well as vomiting and black/tarry stools. He apparently has a remote history of esophageal varices, however he cannot confirm this. Patient complains of some generalized abdominal discomfort, however he falls asleep easily. Patient was placed on esmolol in the emergency department for a flutter with rates in the 150s to 160s. He was placed on octreotide and Protonix. Currently being transfused PRBCs. On evaluation in the ICU, the patient is awake, alert, and oriented. He is agitated because he cannot eat. He complains of diffuse, generalized abdominal pain. He denies any headaches, dizziness, lightheadedness, chest pain, palpitations, shortness of breath, dizziness, lightheadedness, or bright red blood per rectum. Allergies Allergy/AdvReac Type Severity Reaction Status Date / Time No Known Allergies Allergy Unverified 07/06/19 16:45 Home Medications Home Medications Medication Instructions Recorded Confirmed Type enalapril maleate 20 mg PO QAM 07/06/19 07/06/19 History Patient History Medical History Alcohol use Atrial flutter (Acute) Chronic hepatitis C Cirrhosis H/O intravenous drug use in remission Tobacco use Family History Other Family history non-contributory Social History Preferred Language: Afghan Communication Ability: Effective Cook Ice Cream Required: No Beliefs That Will Affect Care: None Current Living Situation: Significant Other Current Living Situation Comment: lives in [place] Other Information That Helps Us Care for You: No Feels Safe at Home: Yes Safety Concerns: Feels Safe At This Time Smoking Status: Current every day smoker Tobacco Type: cigarettes ; Cigarettes Per Day: 4 ; Do You Dip or Chew Tobacco: No ; Second Hand Exposure: No ; Tobacco Cessation Education Requested by Patient: Yes Hx Alcohol Use: No (Quit 7 months ago) Hx Substance Use: No Review of Systems Review of Systems: A complete 10 point review of systems was reviewed with the patient with pertinent positives and negatives as per history of present illness. All else were negative. Physical Exam Physical Exam: VITAL SIGNS - Vital signs and nursing notes were reviewed. GENERAL - 54-year-old male appearing his stated age who is in no acute distress. Communicates well with provider and answers questions appropriately. SKIN - Without rashes. HEAD - NC/AT. EYES - PERRL with EOMI bilaterally. Sclera anicteric. Palpebral conjunctiva pink and moist with no injection noted. EARS - No deformities of external structures noted on gross examination bilaterally. NOSE - Midline and without cyanosis. No epistaxis or purulent drainage noted. MOUTH/OROPHARYNX - Without perioral cyanosis. Buccal mucosa pink and moist and without leukoplakia. Tongue midline with equal elevation of palate bilaterally. NECK - Neck with FROM. Supple to palpation. No nuchal rigidity. LUNGS - Chest wall symmetric without accessory muscle use, intercostals retractions, or central cyanosis. Normal vesicular breath sounds CTA B/L. No wh eezes, rales, or rhonchi appreciated. CARDIAC - RRR with S1/S2. No murmur, rubs, or gallops appreciated. ABDOMEN - Abdominal contour flat without pulsations or visible masses. BS normoactive all four quadrants. No tenderness, palpable masses, hepatosplenomegaly, or ascites noted. EXTREMITIES - No clubbing or peripheral cyanosis. No pretibial edema present. +3/5 radial, posterior tibial, and dorsalis pedis pulses palpated throughout. +5/5 strength noted in UE/LE bilaterally. NEUROLOGIC - Cranial nerves II through XII grossly intact. Sensory intact to light touch throughout. PSYCH - A&Ox3 and cooperates fully with examiner. Pt is very pleasant and interacts well with examiner. Results & Data Results & Data ([facility]) Vital Signs (Past 12 Hours) Vital Signs Temp Pulse Pulse Resp BP BP Pulse Ox 07/06/19 20:00 36.8 C 135 H 14 96/72 L 97 07/06/19 19:54 07/06/19 19:30 36.8 C 135 H 17 94 07/06/19 19:00 134 H 15 98 07/06/19 18:53 36.8 C 136 H 14 101/72 98 07/06/19 18:48 134 H 16 07/06/19 18:15 137 H 19 104/84 94 07/06/19 18:00 138 H 22 109/88 98 07/06/19 17:45 138 H 18 140/73 96 07/06/19 17:30 139 H 19 117/91 97 07/06/19 17:15 139 H 13 123/88 96 07/06/19 17:01 139 H 17 99 07/06/19 17:00 140 H 13 122/94 07/06/19 16:55 140 H 13 127/98 07/06/19 16:30 146 H 21 133/94 100 07/06/19 16:21 143 H 17 99 07/06/19 15:30 147 H 15 131/95 07/06/19 15:01 150 H 20 100 07/06/19 15:00 150 H 124/103 H 99 07/06/19 14:57 151 H 15 100 07/06/19 14:52 150 H 17 122/100 100 07/06/19 14:21 36.5 C 152 H 20 130/90 100 Pulse Ox 07/06/19 20:00 07/06/19 19:54 97 07/06/19 19:30 07/06/19 19:00 07/06/19 18:53 07/06/19 18:48 07/06/19 18:15 07/06/19 18:00 07/06/19 17:45 07/06/19 17:30 07/06/19 17:15 07/06/19 17:01 07/06/19 17:00 07/06/19 16:55 07/06/19 16:30 07/06/19 16:21 07/06/19 15:30 07/06/19 15:01 07/06/19 15:00 07/06/19 14:57 07/06/19 14:52 07/06/19 14:21 Coding Level of Care Code Critical Care 1st 30-74 mins Diagnoses Admitted to intensive care unit Z78.9 Atrial flutter I48.92 Atrial flutter type: unspecified Tachycardia R00.0 Epigastric abdominal pain R10.13 Melena K92.1 Acute GI bleeding K92.2 Tobacco use Z72.0 Chronic hepatitis C B18.2 H/O intravenous drug use in remission Z87.898 Alcohol use Z72.89 Cirrhosis K74.60 Time Spent (min) 35 (1) Atrial flutter Atrial flutter type: unspecified Qualified Code(s): I48.92 - Unspecified atrial flutter
[2019-07-06 21:18] LABS: Hemoglobin 7.4 g/dL (14.0-18.0)
[2019-07-06] MEDS: PANTOprazole 40 MG in SYRINGE 0 ML IV SCH (21:26)
[2019-07-06 22:30] LABS: Appearance Urine Clear (Clear); Bilirubin Urine Negative (Negative); Blood Urine Negative (Negative); Color Urine Yellow; Glucose Urine UA Negative (Negative); Ketones Urine Negative (Negative); Leukocyte Esterase Urine Negative (Negative); Nitrite Urine Negative (Negative); Protein Urine Negative (Negative); Specific Gravity Urine > 1.045 (1.000-1.030); Urobilinogen Urine Negative (Negative)
[2019-07-07 01:24] LABS: Hematocrit (blood only) 23.7 % (42-52); Hemoglobin 7.9 g/dL (14.0-18.0)
[2019-07-07] MEDS ORDERED: SODIUM CHLORIDE 0.9% 250 ML IV PRN (01:45)
[2019-07-07] MEDS ORDERED: HYDROCORTISONE SOD 100 MG in SYRINGE 0 ML IV STA (01:50)
[2019-07-07] MEDS: OCTREOTIDE ACETATE 500 MCG in 0.9 % SODIUM CHLORIDE 100 ML IV SCH ×2 (01:59→11:28)
[2019-07-07] MEDS ORDERED: HYDROCORTISONE SOD SUCCINATE 100 MG/2 ML VIAL IV ONE (02:00)
[2019-07-07] MEDS: ESMOLOL / NSS 2,500 MG/250 ML BAG IV SCH ×4 (03:17→09:12)
[2019-07-07 05:46] LABS: Estimated Average Glucose 117 mg/dl; Hemoglobin A1C 5.7 % (4.5-5.6)
[2019-07-07 05:57] LABS: Hematocrit (blood only) 25.9 % (42-52); Hemoglobin 8.7 g/dL (14.0-18.0); Mean Corpuscular Hemoglobin 26.9 pg (25-34); Mean Corpuscular Hgb Conc 33.6 g/dL (32-36); Mean Corpuscular Volume 80.2 fL (80-100); Mean Platelet Volume 8.9 fL (7.4-10.4); Platelet Count 167 K/uL (130-400); RDW Coefficient of Variation 16.5 % (11.5-14.5); RDW Standard Deviation 48.2 fL (36.4-46.3); Red Blood Count 3.23 M/uL (4.7-6.1); White Blood Count 8.14 K/uL (4.8-10.8)
[2019-07-07] MEDS: SODIUM CHLORIDE 0.9% 1000ML 1,000 ML IV SCH (06:23)
[2019-07-07 06:32] LABS: Alanine Aminotransferase 30 U/L (12-78); Albumin Level 2.2 gm/dl (3.4-5.0); Aspartate Aminotransferase 20 U/L (15-37); BUN Creatinine Ratio 44.6 (10-20); Blood Urea Nitrogen 36 mg/dl (7-18); Calcium 7.6 mg/dl (8.5-10.1); Carbon Dioxide 22 mmol/L (21-32); Chloride 107 mmol/L (98-107); Creatinine Clr Calc Pharmacy 102.5 ml/min; Est GFR (African American) 115.7; Est GFR (Non-African American) 99.9; Glucose 136 mg/dl (70-99); Lipase 686 U/L (73-393); Magnesium 2.1 mg/dl (1.8-2.4); Sodium 133 mmol/L (136-145)
[2019-07-07 06:38] LABS: Albumin Globulin Ratio 0.7 (0.9-2); Alkaline Phosphatase 73 U/L (45-117); Bilirubin,Total 1.1 mg/dl (0.2-1); Phosphorus 3.7 mg/dl (2.5-4.9); Total Protein 5.2 gm/dl (6.4-8.2); Troponin I < 0.015 ng/ml (0-0.045)
[2019-07-07] MEDS: NICOTINE 7 MG/24 HR TDSY TD SCH (07:38)
[2019-07-07] MEDS: PANTOprazole 40 MG in SYRINGE 0 ML IV SCH (07:38)
[2019-07-07] MEDS: HYDROCORTISONE SOD 50 MG in SYRINGE 0 ML IV SCH (09:14)
--- NOTE | 2019-07-07 09:19 | Hospitalist Progress Note ---
Date of Service July 07, 2019 Assessment & Plan (1) Acute GI bleeding: Patient's hemoglobin is improved status post 1 unit of packed red blood cells. Patient has no further evidence of bleeding. Continues on octreotide and IV Protonix per GI service. Continue to monitor hemoglobin over the next 24-48 hours. (2) Cirrhosis: - Secondary to chronic hep C, reveiwed CT of -continue octreotide drip as above (3) Chronic hepatitis C: -Noted, chronic, likely secondary to IVDA - AST, ALT and Alk phos WNL (4) Atrial flutter: Patient appears to be in atrial fibrillation with low blood pressure on monitor, concerned that patient may need more immediate intervention, currently asymptomatic. I did discuss with Hossein Tompkins at bedside, would consider replacing esmolol or the addition of amiodarone considering the patient's hypotension. Cardioversion may also be necessary. Patient is being followed by cardiology, he will contact them to discuss the case further PEPE. (5) H/O intravenous drug use in remission: -History of such, IV cocaine, denies active drug use on admission. (6) Tobacco use: - nicotine patch ordered - Currently on room air (7) Alcohol use: - Hx of such --pt reports last drink was 7 months ago however per [facility] documentation his last drink was prior to his admission there. He was drinking 3-8 beers twice a week per their records - monitor for any signs of withdrawal while admitted (8) DVT prophylaxis: -teds, no chemical ppx in the setting of GI bleed. CODE: FULL Admission and Anticipated Discharge Date Admission Date: July 06, 2019 Subjective Patient seen and examined. Patient is all lying in bed. He is arousable and answering questions appropriately. He denies any issues such as chest pain, shortness of breath, palpitations, nausea or vomiting. He has not had no further GI bleeding. He remains on octreotide along with an esmolol drip for rapid atrial fibrillation. Of note, the patient's blood pressure appears to be in the mid 80s systolic with a heart rate in the 130s. Physical Exam Constitutional: cooperative; no acute distress Nonjaundiced and anicteric Neck: trachea midline, no thyromegaly Respiratory: normal respiratory effort Auscultation: lungs clear to auscultation bilaterally; no crackles, no rales, no rhonchi and no wheezes Cardiovascular: Rate/Rhythm: + tachycardic Heart Sounds: normal S1 and normal S2 Vessels: no JVD Extremities: no pedal edema Gastrointestinal (Abdomen): Inspection/Auscultation: abdomen normal to inspection Percussion/Palpation: abdomen soft; abdomen nontender, no guarding, abdomen not rigid and no hepatosplenomegaly Skin: no rashes, warm and dry Results & Data Results & Data ([facility]) Vital Signs (Past 12 Hours) Vital Signs Temp Pulse Pulse Resp BP BP Pulse Ox 07/07/19 08:00 36.8 C 135 H 134 H 20 107/72 96 07/07/19 06:00 134 H 15 96/70 L 97 07/07/19 05:00 135 H 16 99/77 L 97 07/07/19 04:11 36.9 C 135 H 16 99/75 L 94 07/07/19 04:00 36.9 C 134 H 20 86/72 L 95 07/07/19 03:14 135 H 14 94/66 L 99 07/07/19 03:00 135 H 19 98 07/07/19 02:44 135 H 13 95/64 L 93 07/07/19 02:29 36.7 C 136 H 20 89/68 L 99 07/07/19 02:13 36.6 C 136 H 12 94/68 L 96 07/07/19 02:00 136 H 11 L 94/68 L 97 07/07/19 01:00 135 H 17 94/68 L 95 07/07/19 00:00 37 C 135 H 12 100 07/06/19 23:49 37 C 135 H 16 88/72 L 95 07/06/19 23:33 135 H 13 99/67 L 96 07/06/19 23:15 136 H 17 98/70 L 90 07/06/19 23:00 135 H 13 98/68 L 98 07/06/19 22:45 135 H 15 90/75 L 98 07/06/19 22:33 136 H 15 91/68 L 99 07/06/19 22:03 134 H 18 83/71 L 100 07/06/19 22:00 137 H 20 83/71 L 98 07/06/19 21:48 36.7 C 135 H 20 108/68 94 07/06/19 21:29 36.7 C 136 H 15 89/72 L 97 Pulse Ox 07/07/19 08:00 100 07/07/19 06:00 07/07/19 05:00 07/07/19 04:11 07/07/19 04:00 07/07/19 03:14 07/07/19 03:00 07/07/19 02:44 07/07/19 02:29 07/07/19 02:13 07/07/19 02:00 07/07/19 01:00 07/07/19 00:00 100 07/06/19 23:49 07/06/19 23:33 07/06/19 23:15 07/06/19 23:00 07/06/19 22:45 07/06/19 22:33 07/06/19 22:03 07/06/19 22:00 07/06/19 21:48 07/06/19 21:29 PG Care Time/CCT Total # of Minutes Spent Total Time Spent with Patient: Total time spent is greater than 50% in coordination of care (as documented) at patient's floor/unit and/or counseling patient: Coding Level of Care Code 34725 Subseq Hosp Care Lvl 2 Diagnoses Acute GI bleeding K92.2 Cirrhosis K74.60 Chronic hepatitis C B18.2 Atrial flutter I48.92 Atrial flutter type: unspecified H/O intravenous drug use in remission Z87.898 Tobacco use Z72.0 Alcohol use Z72.89 DVT prophylaxis Z29.9 (1) Atrial flutter Atrial flutter type: unspecified Qualified Code(s): I48.92 - Unspecified atrial flutter
--- NOTE | 2019-07-07 09:24 | Critical Care Progress Note ---
Date of Service July 07, 2019 Assessment & Plan (1) Admitted to intensive care unit: -- Acute blood loss anaemia Likely secondary to upper GI/variceal bleed in a patient with history of cirrhosis Patient got 2 units of PRBC after coming to the hospital Transfuse as needed to keep hemoglobin greater than 7 Monitor H&H GI has been consulted Continue with octreotide, PPI, Rocephin has been added because of possible variceal bleed in a patient who is cirrhotic --A flutter with RVR Patient was recently diagnosed at [facility] with a flutter and the plan was for ablation Patient was supposed to be discharged on apixaban but patient states he has not been taking any medications at home Trell vas is 1 Given noncompliance, is difficult decision to make. Patient has been on esmolol drip since coming to the hospital. He was started at the rate of 50 mg with heart rate in the 130s. Right now his heart rate is still in the 130s with maxed out esmolol drip 300 mg. --History of cirrhosis Likely from chronic hep C --History of IVDA States that he quit now --Active smoker Greater than [id number] smoking history Advised to quit --Prophylaxis PPI and IPC's --Random cortisol low In a patient with map is greater than 65 with random cortisol low Clinically insignificant He was started on hydrocortisone 50 every 8 We will titrated off in 3 days. Plan: Patient's blood pressure is low normal side with map greater than 65 and clinically no hemodynamic instability. Given that the heart rate is not bothering even after maximizing esmolol drip. Patient came in with heart rate of 137 the heart rate is in the 130s flutter. Patient is not on any anticoagulation this is chronic a flutter given that he has history of a flutter even at [facility]. Technically patient will need DEVIN and cardioversion. De-escalating esmolol and given a trial of Cardizem is 1 of the option followed by digoxin although I would be reluctant to use given his potassium is already 5. Chemical cardioversion with amiodarone is also a possibility but again patient cannot be anticoagulated given he is actively bleeding right now. Morphine for pain control. Repeat BMP and H&H at 2 PM. I have personally spent 38 minutes of critical care time in the direct management of this patient. This is a life/limb threatening event. This includes time spent evaluating patient, direct bedside care, chart review, placing orders, interpretation of diagnostic studies, discussion with consultants, patient, and family members, as well as other required patient management activities. This time is exclusive of all separately billable procedures, and teaching time and separate from and in addition to any other critical care service time. Please note the above document was generated using voice recognition software. It may contain grammatical, syntax or spelling errors. (2) Atrial flutter: (3) Melena: (4) Acute GI bleeding: Admission and Anticipated Discharge Date Admission Date: July 06, 2019 Subjective Patient seen and examined at bedside. Complaining of abdominal pain. Denies any nausea or vomiting. No bowel movements after coming to the hospital. Had melanotic stool just prior to admission. Patient got 2 units of PRBC so far. Denies any chest pain, no palpitation, no headache, no blurry vision. Asking for food. Review of Systems Review of Systems: All systems reviewed & are unremarkable except as noted in HPI & below Physical Exam Physical Exam: Constitutional: No acute distress HEENT: EOMI, PERRLA Respiratory system: Decreased air entry bilaterally, no wheeze, no rhonchi, no crackles CVS: S1-S2 positive, no murmurs or gallops Abdomen: Soft, mild epigastric tenderness, no rebound, nondistended, positive bowel sounds x4 Extremities: +2 pulses bilaterally radialis/ dorsalis pedis, no cyanosis, no edema Neuro: Awake alert oriented x3 Psych: Normal mood and affect G/U: No Wilkins Skin: no rashes, warm and dry Lymphatic: no cervical or axillary lymphadenopathy Results & Data Results & Data ([facility]) Vital Signs (Past 12 Hours) Vital Signs Temp Pulse Pulse Resp BP BP Pulse Ox 07/07/19 08:00 36.8 C 135 H 134 H 20 107/72 96 07/07/19 06:00 134 H 15 96/70 L 97 07/07/19 05:00 135 H 16 99/77 L 97 07/07/19 04:11 36.9 C 135 H 16 99/75 L 94 07/07/19 04:00 36.9 C 134 H 20 86/72 L 95 07/07/19 03:14 135 H 14 94/66 L 99 07/07/19 03:00 135 H 19 98 07/07/19 02:44 135 H 13 95/64 L 93 07/07/19 02:29 36.7 C 136 H 20 89/68 L 99 07/07/19 02:13 36.6 C 136 H 12 94/68 L 96 07/07/19 02:00 136 H 11 L 94/68 L 97 07/07/19 01:00 135 H 17 94/68 L 95 07/07/19 00:00 37 C 135 H 12 100 07/06/19 23:49 37 C 135 H 16 88/72 L 95 07/06/19 23:33 135 H 13 99/67 L 96 07/06/19 23:15 136 H 17 98/70 L 90 07/06/19 23:00 135 H 13 98/68 L 98 07/06/19 22:45 135 H 15 90/75 L 98 07/06/19 22:33 136 H 15 91/68 L 99 07/06/19 22:03 134 H 18 83/71 L 100 07/06/19 22:00 137 H 20 83/71 L 98 07/06/19 21:48 36.7 C 135 H 20 108/68 94 07/06/19 21:29 36.7 C 136 H 15 89/72 L 97 Pulse Ox 07/07/19 08:00 100 07/07/19 06:00 07/07/19 05:00 07/07/19 04:11 07/07/19 04:00 07/07/19 03:14 07/07/19 03:00 07/07/19 02:44 07/07/19 02:29 07/07/19 02:13 07/07/19 02:00 07/07/19 01:00 07/07/19 00:00 100 07/06/19 23:49 07/06/19 23:33 07/06/19 23:15 07/06/19 23:00 07/06/19 22:45 07/06/19 22:33 07/06/19 22:03 07/06/19 22:00 07/06/19 21:48 07/06/19 21:29 07/07/19 05:36 07/07/19 05:36 CT abdomen pelvis: Lower part of the right lung shows some tree-in-bud which is nonsignificant in this patient given he is asymptomatic. Patient is already on Rocephin which will cover for infection. Coding Level of Care Code Critical Care 1st 30-74 mins Diagnoses Admitted to intensive care unit Z78.9 Atrial flutter I48.92 Atrial flutter type: unspecified Melena K92.1 Acute GI bleeding K92.2 Time Spent (min) 38 (1) Atrial flutter Atrial flutter type: unspecified Qualified Code(s): I48.92 - Unspecified atrial flutter
[2019-07-07] MEDS ORDERED: MoRPHine SULFATE 2 MG/ML CARP IV PRN (09:25)
[2019-07-07] MEDS ORDERED: STAT IV Infusion **Titration per Protocol STA (09:37)
[2019-07-07] MEDS ORDERED: dilTIAZem HCl 5 MG/ML 5 ML VIAL IV STA (09:37)
[2019-07-07] MEDS: dilTIAZem HCL 125 MG in DEXTROSE 5% 100 ML IV SCH ×2 (09:56→19:36)
[2019-07-07] MEDS ORDERED: HYDROCORTISONE SOD 50 MG in SYRINGE 0 ML IV SCH (10:00)
--- NOTE | 2019-07-07 10:01 | Gastrointestinal Consultation ---
Date of Consultation July 07, 2019 Assessment & Plan (1) Cirrhosis: (2) Melena: Due to melena and history of Cirrhosis, I would recommend an emergent EGD to rule out variceal bleeding. Continue Octreotide and IV Protonix at present. Continue supportive care. Further recommendations to follow History of Present Illness Reason for Consultation: Melena Attending Physician: Shorty Burciaga DO History of Present Illness Mu Corado is a 54 yo CM who presented to [facility] ER yesterday with complaints of dark tarry stools. In the ER he was noted to have a Hgb of 8.5. He was also noted to have AFib with RVR. He does have a history of cirrhosis as well as Hepatitis C from prior IVDA, and therefore was placed on octreotide for possible variceal bleed, as well as IV protonix. In review of his medical record, he was seen in [place] within the past 6 months, and did have an abnormal CT scan of the esophagus with distal esophageal thickening, and was to have an EGD, but signed out AMA. Overnight, he was Hemodynamically stable. He did receive 2 u PRBC's and had a slight rise in his H/H. He has not had any hematemesis, melena, or hematochezia. Currently he denies any fevers, chills, nausea, vomiting, dysphagia or abdominal pain. He states that he does not take any NSAID's at home, and uses tylenol for pain control. He has no further complaints. Allergies Allergy/AdvReac Type Severity Reaction Status Date / Time No Known Allergies Allergy Unverified 07/06/19 16:45 Home Medications Home Medications Medication Instructions Recorded Confirmed Type enalapril maleate 20 mg PO QAM 07/06/19 07/06/19 History Patient History Medical History Alcohol use Atrial flutter (Acute) Chronic hepatitis C Cirrhosis H/O intravenous drug use in remission Tobacco use Family History Other Family history non-contributory Social History Preferred Language: Grenadian Communication Ability: Effective Podiatric Foot And Ankle Specialist Required: No Beliefs That Will Affect Care: None Current Living Situation: Significant Other Current Living Situation Comment: lives in [place] Other Information That Helps Us Care for You: No Feels Safe at Home: Yes Safety Concerns: Feels Safe At This Time Smoking Status: Current every day smoker Tobacco Type: cigarettes ; Cigarettes Per Day: 4 ; Do You Dip or Chew Tobacco: No ; Second Hand Exposure: No ; Tobacco Cessation Education Requested by Patient: Yes Hx Alcohol Use: No (Quit 7 months ago) Hx Substance Use: No Review of Systems Review of Systems: All systems reviewed & are unremarkable except as noted in HPI & below Physical Exam Constitutional: + ill appearing Eyes: PERRL, conjunctivae normal, anicteric sclerae ENMT: external ear and nose normal, oropharynx normal Neck: trachea midline Respiratory: normal respiratory effort, lungs clear to auscultation Cardiovascular: RRR, no murmur, no edema Gastrointestinal (Abdomen): normal bowel sounds, soft, nontender, no hepatosplenomegaly Skin: no rashes, warm and dry Psychiatric: A+Ox3, euthymic affect Results & Data ([facility]) Vital Signs (Past 12 Hours) Vital Signs Temp Pulse Pulse Resp BP BP Pulse Ox 07/07/19 08:00 36.8 C 135 H 134 H 20 107/72 96 07/07/19 06:00 134 H 15 96/70 L 97 07/07/19 05:00 135 H 16 99/77 L 97 07/07/19 04:11 36.9 C 135 H 16 99/75 L 94 07/07/19 04:00 36.9 C 134 H 20 86/72 L 95 07/07/19 03:14 135 H 14 94/66 L 99 07/07/19 03:00 135 H 19 98 07/07/19 02:44 135 H 13 95/64 L 93 07/07/19 02:29 36.7 C 136 H 20 89/68 L 99 07/07/19 02:13 36.6 C 136 H 12 94/68 L 96 07/07/19 02:00 136 H 11 L 94/68 L 97 07/07/19 01:00 135 H 17 94/68 L 95 07/07/19 00:00 37 C 135 H 12 100 07/06/19 23:49 37 C 135 H 16 88/72 L 95 07/06/19 23:33 135 H 13 99/67 L 96 07/06/19 23:15 136 H 17 98/70 L 90 07/06/19 23:00 135 H 13 98/68 L 98 07/06/19 22:45 135 H 15 90/75 L 98 07/06/19 22:33 136 H 15 91/68 L 99 07/06/19 22:03 134 H 18 83/71 L 100 07/06/19 22:00 137 H 20 83/71 L 98 Pulse Ox 07/07/19 08:00 100 07/07/19 06:00 07/07/19 05:00 07/07/19 04:11 07/07/19 04:00 07/07/19 03:14 07/07/19 03:00 07/07/19 02:44 07/07/19 02:29 07/07/19 02:13 07/07/19 02:00 07/07/19 01:00 07/07/19 00:00 100 07/06/19 23:49 07/06/19 23:33 07/06/19 23:15 07/06/19 23:00 07/06/19 22:45 07/06/19 22:33 07/06/19 22:03 07/06/19 22:00 PG Care Time/CCT Total # of Minutes Spent Total Time Spent with Patient: Total time spent is greater than 50% in coordination of care (as documented) at patient's floor/unit and/or counseling patient: Coding Level of Care Code 34946 Inpt Consult Level 4 Diagnoses Cirrhosis K74.60 Melena K92.1
--- NOTE | 2019-07-07 10:49 | Electrocardiogram Report ---
Test Reason : Blood Pressure : / mmHG Vent. Rate : 150 BPM Atrial Rate : 150 BPM P-R Int : 132 ms QRS Dur : 162 ms QT Int : 320 ms P-R-T Axes : 000 017 -71 degrees QTc Int : 505 ms Atrial flutter with 2 to 1 block Abnormal ECG No previous ECGs available Confirmed by Jose Sánchez ([id number]) on 07/07/2019 10:49:29 AM Referred By: REFERRED SELF Confirmed By:Jose Sánchez
[2019-07-07] MEDS ORDERED: LIDOCAINE HCL 2% 2 ML VIAL/AMP(20MG/ML) INFIL ONE (10:51)
[2019-07-07] MEDS ORDERED: PROPOFOL IV EMULSION 10 MG/ML 20 ML VIAL IV ONE ×2 (10:51→14:57)
[2019-07-07] MEDS ORDERED: fentaNYL citrate 100 MCG/2 ML VIAL ONE (10:52)
--- NOTE | 2019-07-07 10:56 | Anesthesiology Consultation ---
Date of Service July 07, 2019 Assessment & Plan (1) Encounter for pre-operative examination: Chart Review Chart Review: Acceptable Risk for Surgery (elevated risk but necessary procedure) and Patient NOT seen in Pre Admission Testing Consults Requested none History Surgery Operation Date: 07/07/19 11:00 Proposed Procedures p Esophagogastroduodenoscopy Wilton Mccauley Case, DO Operation Date: 07/07/19 16:30 Proposed Procedures p Esophagogastroduodenoscopy Dr Massey - Alexander Mccauley Case, DO Height/Weight Height: 5 ft 11 in Weight: 71.8 kg Allergies Allergy/AdvReac Type Severity Reaction Status Date / Time No Known Allergies Allergy Unverified 07/06/19 16:45 Medications Home Medications Medication Instructions Recorded Confirmed Last Taken enalapril maleate 20 mg PO QAM 07/06/19 07/06/19 Unknown Active Medications Generic Name Dose Route Start Last Admin Trade Name Freq PRN Reason Stop Dose Admin Esmolol HCl 2,500 mg in 250 mls @ 49.08 mls/hr 07/06/19 16:15 07/07/19 10:23 Brevibloc IV 08/05/19 16:14 100 mcg/kg/min .Q5H6M LOUIS 49.1 mls/hr Titration Protocol 100 MCG/KG/MIN Sodium Chloride 1,000 mls @ 80 mls/hr 07/06/19 16:45 07/07/19 06:23 Nss 1000ml IV 07/07/19 16:44 80 mls/hr .[id number] L[place]IS Administration Octreotide Acetate 500 mcg/ 105 mls @ 10.5 mls/hr 07/06/19 18:00 07/07/19 01:59 Sodium Chloride IV 08/05/19 17:59 50 mcg/hr .Q10H L[place]IS 10.5 mls/hr Administration 50 MCG/HR Ceftriaxone Sodium 2,000 mg/ 70 mls @ 100 mls/hr 07/06/19 19:00 07/06/19 20:30 Dextrose IV 07/16/19 18:59 Infused Q24H L[facility]IS Infusion Protocol Pantoprazole Sodium 40 mg/ 10 mls @ 5 mls/min 07/06/19 21:00 07/07/19 07:38 Syringe IV 08/05/19 20:59 5 mls/min BID L[facility]IS Administration Hydrocortisone Sodium 1 mls @ 4 mls/min 07/07/19 09:00 07/07/19 09:14 Succinate 50 mg/ Syringe IV 08/06/19 08:59 4 mls/min DAILY L[facility]IS Administration Diltiazem HCl 125 mg/ Dextrose 125 mls @ 5 mls/hr 07/07/19 09:45 07/07/19 09:56 IV 08/06/19 09:44 5 mg/hr .Q24H L[place]IS 5 mls/hr Administration Protocol 5 MG/HR Ioversol 94 ml 07/06/19 16:08 07/06/19 16:08 Optiray 320 100ml IV 07/10/19 16:07 94 ml ONCE PRN Administration Interaction Checking Miscellaneous 1 ea 07/07/19 08:59 07/07/19 07:38 Remove Nicoderm Patch N/A 08/06/19 08:58 1 ea [id number] L[facility]IS Administration Nicotine 7 mg 07/07/19 09:00 07/07/19 07:38 Nicoderm Cq TD 08/06/19 08:59 7 mg QAM L[place]IS Administration Past Medical History Medical History Alcohol use Atrial flutter (Acute) Chronic hepatitis C Cirrhosis H/O intravenous drug use in remission Tobacco use Past Family History Family History Other Family history non-contributory Social History Smoking Status: Current every day smoker tobacco type: cigarettes Smoking cigarettes per day: 4 Do You Dip or Chew Tobacco: No Hx Alcohol Use: No (Quit 7 months ago) Hx Substance Use: No substance use type: crack/cocaine and IV drugs Physical Exam Vital Signs Last Vital Signs Temp 36.8 C 07/07/19 08:00 Pulse 135 H 07/07/19 10:30 Resp 20 07/07/19 10:30 BP 114/61 07/07/19 10:19 Pulse Ox 97 07/07/19 10:30 Testing Laboratory Results 07/07/19 05:36 07/07/19 05:36 PT 10.8 Seconds (9.0-12.0) 07/06/19 14:52 INR 1.0 (0.9-1.1) 07/06/19 14:52 Hemoglobin A1c 5.7 % (4.5-5.6) H 07/06/19 14:51 Urine Color Yellow 07/06/19 22:00 Urine Appearance Clear (Clear) 07/06/19 22:00 Urine pH 6.0 (4.5-7.5) 07/06/19 22:00 Ur Specific [place] > 1.045 (1.000-1.030) H 07/06/19 22:00 Urine Protein Negative (Negative) 07/06/19 22:00 Urine Glucose (UA) Negative (Negative) 07/06/19 22:00 Urine Ketones Negative (Negative) 07/06/19 22:00 Urine Nitrite Negative (Negative) 07/06/19 22:00 Ur Leukocyte Esterase Negative (Negative) 07/06/19 22:00 Blood Type A Positive 07/06/19 14:51 Antibody Screen NEGATIVE 07/06/19 14:51 Electrocardiogram Date: 07/06/19 Aflutter, rate 150 2:1 block Chest X-Ray Date: 07/06/19 SINGLE VIEW CHEST CLINICAL HISTORY: Epigastric abdominal pain. FINDINGS: 2 AP, portable, upright chest radiographs are obtained. No prior stud ies are available for comparison at the time of dictation. The examination is degraded by portable technique and patient rotation. The cardiomediastinal silhouette is unremarkable. The lungs and pleural spaces are clear. No pneumothorax is seen. There are healed left-sided rib fractures. There is c hronic posttraumatic deformity of the left clavicle. Surgical anchors are noted in the right humeral head. Superior subluxation of both humeral heads suggest chronic rotator cuff injuries. IMPRESSION: No active disease in the chest. ACT 112: Negative or not required by law. Electronically signed by: Hossein Suarez M.D. 07/06/2019 4:23 PM Dictated: 07/06/19 1622 Transcribed: 07/06/[address] OF THE ABDOMEN AND PELVIS WITH CONTRAST CLINICAL HISTORY: Abdominal pain. Anemia. GI bleed. COMPARISON STUDY: None. TECHNIQUE: Following IV administration of 94 mL of Optiray-320, axial images of the abdomen and pelvis were obtained from the lung bases to the proximal femurs. Images were reviewed in the axial, sagittal, and coronal planes. IV contrast was administered without complication. Automated exposure control was utilized for the study. A dose lowering technique was utilized adhering to the principles of ALARA. CT DOSE: 478.30 mGycm FINDINGS: Imaged portions of the lower chest demonstrate bronchial wall thi ckening and secretions within right lower lobe segmental bronchi. There are patchy groundglass opacities within the right lower lobe. Trace right pleural effusion is noted. No pneumatosis, free air or portal venous gas is present. Moderate splenomegaly is noted. There is mild irregularity of the liver surface indicative of cirrhosis. Sensitivity for detection of hypervascular lesions is diminished on this portal venous phase exam but no hepatic lesions are identified. The main, left and right portal veins are patent. There is no biliary or pancreatic ductal dilatation. The stomach is fluid-filled and moderately distended. The distal esophagus is also fluid-filled and distended. There is distal esophageal wall thickening as well as apparent wall thickening of the gastric cardia. Mildly enl arged upper abdominal lymph nodes are noted. Index gastrohepatic ligament lymph node on image 56 of 446 measures 1.1 cm in short axis diameter. Index portacaval node on image 100 measures 1.5 cm. Calcifications within each renal sinus favor vascular calcifications although nonobstructing renal calculi could appear similar. There is no hydronephrosis. There are no ureteral calculi. Caliber and wall thickness of small and large bowel are normal. There is no ascites. The appendix is normal. Major vasculature is patent. No suspicious osseous lesions are present. IMPRESSION: 1. Cirrhotic liver with moderate splenomegaly indicative of portal hypertension. No ascites. 2. Fluid-filled, distended distal esophagus with wall thickening. This favors esophagitis. Prominent gastric folds within the cardia which may reflect gastritis. A mucosal lesion is considered less likely but cannot be excluded. Nonemergent endoscopy is recommended. Moderately distended, fluid-filled stomach. 3. Multiple mildly enlarged upper abdominal lymph nodes which are nonspecific but may be related to chronic liver disease. 4. Mild groundglass opacities within the right lower lobe with a trace right pleural effusion and bronchial wall thickening with secretions within the right lower lobe segmental bronchi. This could reflect an infectious process or aspiration. ACT 112: Negative or not required by law. Electronically signed by: Darell Izquierdo M.D. 07/06/2019 4:35 PM Dictated: 07/06/19 1614 Transcribed: 07/06/19 1614
--- NOTE | 2019-07-07 11:07 | Cardiology Consultation ---
Date of Consultation July 07, 2019 Assessment & Plan (1) Atrial flutter: He has been in atrial flutter since admission here and likely has been in it for a number of months, the true duration is unknown. He has not been on anticoagulation in the past (although was advised) and therefore it is risky to consider cardioversion. He does seem to tolerate the arrhythmia well, his echocardiogram is pending. We need better rate control, he is currently on maximal doses of esmolol with no change in AV conduction. Atrial flutter with 2-1 AV conduction can sometimes be difficult to rate control, he will likely need several medications. At this point I would consider backing off on the esmolol but keeping it at perhaps 200 mcg/min, and adding diltiazem to his regimen. I would start low, with a bolus of 5 mg and a drip of 5 mg/h, and titrate gradually. If he becomes hemodynamically unstable we can cardiovert understanding the risk of stroke although that is probably relatively low as he does not have a high [id number] score. Over the long run treatment will be somewhat problematic. If we can control rate perhaps that will be sufficient (anticoagulation may be prohibitively risky especially given his low [id number] score). History of Present Illness Reason for Consultation: Atrial flutter with a rapid heart rate Attending Physician: Shorty Burciaga, History of Present Illness This is a 54-year-old male with a history of drug and alcohol abuse who presented to [facility] I believe with atrial flutter and a rapid heart rate around February 2019. I have not reviewed those records. I understand that his heart rate was not controlled and it was recommended that he start beta-blockade and anticoagulation with Eliquis, however he signed out AMA and is not taking any medications. He presents now with a GI bleed (without anticoagulant therapy). He tells me that he has not been taking any medications, he denies any cardiovascular symptoms including palpitations, lightheadedness or dizziness, shortness of breath, chest discomfort, etc. Allergies Allergy/AdvReac Type Severity Reaction Status Date / Time No Known Allergies Allergy Verified 07/07/19 11:56 Home Medications Home Medications Medication Instructions Recorded Confirmed Type enalapril maleate 20 mg PO QAM 07/06/19 07/06/19 History Patient History Medical History Alcohol use Atrial flutter (Acute) Chronic hepatitis C Cirrhosis H/O intravenous drug use in remission Tobacco use Family History Other Family history non-contributory Social History Preferred Language: Estonian Communication Ability: Effective Telegraph And Teletype Operator Required: No Beliefs That Will Affect Care: None Current Living Situation: Significant Other Current Living Situation Comment: lives in [place] Other Information That Helps Us Care for You: No Feels Safe at Home: Yes Safety Concerns: Feels Safe At This Time Smoking Status: Current every day smoker Tobacco Type: cigarettes ; Cigarettes Per Day: 4 ; Do You Dip or Chew Tobacco: No ; Second Hand Exposure: No ; Tobacco Cessation Education Requested by Patient: Yes Hx Alcohol Use: No (Quit 7 months ago) Hx Substance Use: No Review of Systems Review of Systems: All systems reviewed & are unremarkable except as noted in HPI & below Physical Exam Physical Exam: Constitutional: Alert, cooperative and in no distress. HEENT: Unremarkable Neck: No jugular venous distention, carotid pulses are normal and equal bilaterally without bruits. Pulmonary: Clear to auscultation bilaterally. Cardiac: Regular rapid rhythm with no murmur, gallop or rub. Abdomen: Soft, nontender with normal bowel sounds. Extremities: No edema. Distal pulses intact. Neurologic: No focal findings. Gait is steady. Skin: No rash, ecchymoses or petechiae. Results & Data ([facility]) Vital Signs (Past 12 Hours) Vital Signs Temp Pulse Pulse Resp BP BP Pulse Ox 07/07/19 08:00 36.8 C 135 H 134 H 20 107/72 96 07/07/19 06:00 134 H 15 96/70 L 97 07/07/19 05:00 135 H 16 99/77 L 97 07/07/19 04:11 36.9 C 135 H 16 99/75 L 94 07/07/19 04:00 36.9 C 134 H 20 86/72 L 95 07/07/19 03:14 135 H 14 94/66 L 99 07/07/19 03:00 135 H 19 98 07/07/19 02:44 135 H 13 95/64 L 93 07/07/19 02:29 36.7 C 136 H 20 89/68 L 99 07/07/19 02:13 36.6 C 136 H 12 94/68 L 96 07/07/19 02:00 136 H 11 L 94/68 L 97 07/07/19 01:00 135 H 17 94/68 L 95 07/07/19 00:00 37 C 135 H 12 100 07/06/19 23:49 37 C 135 H 16 88/72 L 95 07/06/19 23:33 135 H 13 99/67 L 96 07/06/19 23:15 136 H 17 98/70 L 90 07/06/19 23:00 135 H 13 98/68 L 98 07/06/19 22:45 135 H 15 90/75 L 98 07/06/19 22:33 136 H 15 91/68 L 99 07/06/19 22:03 134 H 18 83/71 L 100 07/06/19 22:00 137 H 20 83/71 L 98 07/06/19 21:48 36.7 C 135 H 20 108/68 94 07/06/19 21:29 36.7 C 136 H 15 89/72 L 97 Pulse Ox 07/07/19 08:00 100 07/07/19 06:00 07/07/19 05:00 07/07/19 04:11 07/07/19 04:00 07/07/19 03:14 07/07/19 03:00 07/07/19 02:44 07/07/19 02:29 07/07/19 02:13 07/07/19 02:00 07/07/19 01:00 07/07/19 00:00 100 07/06/19 23:49 07/06/19 23:33 07/06/19 23:15 07/06/19 23:00 07/06/19 22:45 07/06/19 22:33 07/06/19 22:03 07/06/19 22:00 07/06/19 21:48 07/06/19 21:29 Laboratory Results Cardiac Enzymes 07/06/19 07/06/19 07/07/19 Range/Units 14:51 21:08 05:36 AST 19 20 (15-37) U/L Troponin I < 0.015 < 0.015 (0-0.045) ng/ml Coagulation 07/06/19 Range/Units 14:52 PT 10.8 (9.0-12.0) Seconds CBC 07/06/19 07/06/19 07/07/19 Range/Units 14:51 21:08 01:13 WBC 10.15 (4.8-10.8) K/uL RBC 3.25 L (4.7-6.1) M/uL Hgb 8.5 L 7.4 L 7.9 L (14.0-18.0) g/dL Hct 25.3 L 22.0 L 23.7 L (42-52) % Plt Count 238 (130-400) K/uL Neut # (Auto) 6.82 H (1.4-6.5) K/uL Lymph # (Auto) 2.49 (1.2-3.4) K/uL [place] # (Auto) 0.64 H (0.11-0.59) K/uL Eos # (Auto) 0.13 (0-0.5) K/uL Baso # (Auto) 0.04 (0-0.2) K/uL 07/07/19 Range/Units 05:36 WBC 8.14 (4.8-10.8) K/uL RBC 3.23 L (4.7-6.1) M/uL Hgb 8.7 L (14.0-18.0) g/dL Hct 25.9 L (42-52) % Plt Count 167 (130-400) K/uL Neut # (Auto) (1.4-6.5) K/uL Lymph # (Auto) (1.2-3.4) K/uL [place] # (Auto) (0.11-0.59) K/uL Eos # (Auto) (0-0.5) K/uL Baso # (Auto) (0-0.2) K/uL Comprehensive Metabolic Panel 07/06/19 07/07/19 Range/Units 14:51 05:36 Sodium 133 L 133 L (136-145) mmol/L Potassium 4.6 5.0 (3.5-5.1) mmol/L Chloride 102 107 (98-107) mmol/L Carbon Dioxide 27 22 (21-32) mmol/L BUN 43 H 36 H (7-18) mg/dl Creatinine 0.97 0.80 (0.6-1.4) mg/dl Glucose 177 H 136 H (70-99) mg/dl Calcium 8.5 7.6 L (8.5-10.1) mg/dl AST 19 20 (15-37) U/L ALT 36 30 (12-78) U/L Alkaline Phosphatase 89 73 (45-117) U/L Total Protein 6.0 L 5.2 L (6.4-8.2) gm/dl Albumin 2.4 L 2.2 L (3.4-5.0) gm/dl Intake and Output 07/06/19 07/07/19 07/07/19 22:59 06:59 14:59 Intake Total 2540.000 / 4987.628 2447.628 / 4987.628 425.009 / 425.009 Output Total 375 / 925 550 / 925 300 / 300 Balance 2165.000 / 4062.628 1897.628 / 4062.628 125.009 / 125.009 Intake: IV 2540.000 / 4367.628 1827.628 / 4367.628 425.009 / 425.009 BREVIBLOC 2,500 mg In 250 ml @ 250.000 / 1132.345 882.345 / 1132.345 425.009 / 425.009 300 MCG/KG/MIN 147.24 mls/hr IV .Q1H42M [facility] Rx#:[id number] Sandostatin 500 Mcg In Sodium 75.95 / 75.95 Chloride 100 ml @ 50 MCG/HR 10. 5 mls/hr IV .Q10H [place] Rx#: [id number] Protonix 40 mg In D5 100 ml @ 8 100 / 100 MG/HR 20 mls/hr IV Q5H [place] Rx# :[id number] Protonix 80 mg In D5 100 ml @ 120 / 120 480 mls/hr IV NOW ONE Rx#: [id number] Nss 1000ML 1,000 ml @ 80 mls/hr 2000 / 2869.333 869.333 / 2869.333 IV .[id number] [place] Rx#:[id number] Rocephin 2,000 mg In D5w 50 ml 70 / 70 @ 100 mls/hr IV Q24H [place] Rx#: [id number] Oral 0 / 0 0 / 0 Intake (Blood Product) Amt 0 / 620 620 / 620 Packed Cells, Leukoreduced 0 / 310 310 / 310 Unit [id number] Packed Cells, Leukoreduced 310 / 310 Unit [id number] Output: Urine 375 / 925 550 / 925 300 / 300 # Bowel Movements 0 / 0 0 / 0 Other: Weight 70.3 kg 71.8 kg 71.8 kg Patient Weight 07/08/19 06:59 Weight 71.8 kg Diagnostic Findings Electrocardiogram on admission: Atrial flutter with 2-1 AV conduction and a heart rate of about 135 bpm. Telemetry: Continuous atrial flutter with a heart rate remaining at about 135 bpm. Echo: Done today and reviewed by myself, formal report pending. Reasonably well preserved LV function, if not normal but at high heart rate hard to tell for sure. PG Care Time/CCT Total # of Minutes Spent Total Time Spent with Patient: Total time spent is greater than 50% in coordination of care (as documented) at patient's floor/unit and/or counseling patient: Coding Level of Care Code 50286 Inpt Consult Level 4 Diagnoses Atrial flutter I48.92 Atrial flutter type: unspecified (1) Atrial flutter Atrial flutter type: unspecified Qualified Code(s): I48.92 - Unspecified atrial flutter
--- NOTE | 2019-07-07 12:28 | GI REPORT ---
Patient Name: Mu Corado Procedure Date: 07/07/2019 12:05 PM Date of : 1965 Admit Type: Inpatient Age: 54 Gender: Male Attending MD: Alexander Massey DO Procedure: Upper GI endoscopy Providers: Alexander Massey DO Referring MD: Shorty Burciaga Do Indications: Melena Medicines: Monitored Anesthesia Care Complications: No immediate complications. Estimated Blood Loss: Estimated blood loss: none. Procedure: Pre-Anesthesia Assessment: - Prior to the procedure, a History and Physical was performed, and patient medications and allergies were reviewed. The patient's tolerance of previous anesthesia was also reviewed. The risks and benefits of the procedure and the sedation options and risks were discussed with the patient. All questions were answered, and informed consent was obtained. Prior Anticoagulants: The patient has taken no previous anticoagulant or antiplatelet agents. ASA Grade Assessment: IV - A patient with severe systemic disease that is a constant threat to life. After reviewing the risks and benefits, the patient was deemed in satisfactory condition to undergo the procedure. After obtaining informed consent, the endoscope was passed under direct vision. Throughout the procedure, the patient's blood pressure, pulse, and oxygen saturations were monitored continuously. The Scope was introduced through the mouth, and advanced to the second part of duodenum. The upper GI endoscopy was accomplished without difficulty. The patient tolerated the procedure well. Findings: Moderately severe esophagitis with no bleeding was found 30 to 40 cm from the incisors. A few 5 mm mucosal nodules were found in the distal esophagus, 40 cm from the incisors. Biopsies were taken with a cold forceps for histology. A small hiatal hernia was present. Localized moderate inflammation characterized by congestion (edema) and erythema was found in the entire examined stomach. The examined duodenum was normal. Impression: - Moderately severe reflux esophagitis. - Mucosal nodule found in the esophagus. Biopsied. - Small hiatal hernia. - Gastritis. - Normal examined duodenum. Recommendation: - Return patient to [facility] for ongoing care. - Advance diet as tolerated. - Use Protonix (pantoprazole) 40 mg PO BID. - Stop Octreotide gtt. - Await pathology results. Alexander Massey DO 07/07/2019 12:28:00 PM This report has been signed electronically. Note Initiated On: 07/07/2019 12:05 PM Number of Addenda: 0 I attest to the content of the Intraoperative Record and orders documented therein, exceptions below {[id number]}
--- NOTE | 2019-07-07 12:38 | Anesthesiology Progress Note ---
Date of Service July 07, 2019 Anesthesia Post Procedure Vital Signs Vital Signs: Temp Pulse Pulse Resp BP BP Pulse Ox 07/07/19 12:36 141 H 16 92/71 L 99 07/07/19 12:22 36.4 C L 137 H 16 108/84 100 07/07/19 11:45 36.4 C L 140 H 18 95/76 L 97 07/07/19 10:30 135 H 20 97 07/07/19 10:19 137 H 18 114/61 95 07/07/19 10:15 136 H 17 98 07/07/19 10:09 136 H 18 90/67 L 97 07/07/19 10:00 137 H 23 95 07/07/19 09:59 136 H 13 92/68 L 98 07/07/19 09:52 135 H 19 98/74 L 95 07/07/19 09:30 135 H 12 97 07/07/19 09:22 135 H 25 H 93/69 L 96 07/07/19 09:00 132 H 18 96 07/07/19 08:59 132 H 20 85/64 L 97 07/07/19 08:52 134 H 13 81/62 L 95 07/07/19 08:30 135 H 17 98 07/07/19 08:22 132 H 15 96/74 L 96 07/07/19 08:00 36.8 C 135 H 134 H 18 107/72 96 07/07/19 07:51 135 H 18 99/69 L 96 07/07/19 07:30 135 H 20 97 07/07/19 07:22 135 H 14 88/71 L 97 07/07/19 07:06 134 H 18 107/72 100 07/07/19 07:00 135 H 99 07/07/19 06:00 134 H 15 96/70 L 97 07/07/19 05:00 135 H 16 99/77 L 97 07/07/19 04:11 36.9 C 135 H 16 99/75 L 94 07/07/19 04:00 36.9 C 134 H 20 86/72 L 95 07/07/19 03:14 135 H 14 94/66 L 99 07/07/19 03:00 135 H 19 98 07/07/19 02:44 135 H 13 95/64 L 93 07/07/19 02:29 36.7 C 136 H 20 89/68 L 99 07/07/19 02:13 36.6 C 136 H 12 94/68 L 96 07/07/19 02:00 136 H 11 L 94/68 L 97 07/07/19 01:00 135 H 17 94/68 L 95 07/07/19 00:00 37 C 135 H 12 100 07/06/19 23:49 37 C 135 H 16 88/72 L 95 07/06/19 23:33 135 H 13 99/67 L 96 07/06/19 23:15 136 H 17 98/70 L 90 07/06/19 23:00 135 H 13 98/68 L 98 07/06/19 22:45 135 H 15 90/75 L 98 07/06/19 22:33 136 H 15 91/68 L 99 07/06/19 22:03 134 H 18 83/71 L 100 07/06/19 22:00 137 H 20 83/71 L 98 07/06/19 21:48 36.7 C 135 H 20 108/68 94 07/06/19 21:29 36.7 C 136 H 15 89/72 L 97 07/06/19 20:00 36.8 C 135 H 135 H 14 96/72 L 97 07/06/19 19:54 07/06/19 19:30 36.8 C 135 H 17 94 07/06/19 19:00 134 H 15 98 07/06/19 18:53 36.8 C 136 H 14 101/72 98 07/06/19 18:48 134 H 16 07/06/19 18:15 137 H 19 104/84 94 07/06/19 18:00 138 H 22 109/88 98 07/06/19 17:45 138 H 18 140/73 96 07/06/19 17:30 139 H 19 117/91 97 07/06/19 17:15 139 H 13 123/88 96 07/06/19 17:01 139 H 17 99 07/06/19 17:00 140 H 13 122/94 07/06/19 16:55 140 H 13 127/98 07/06/19 16:30 146 H 21 133/94 100 07/06/19 16:21 143 H 17 99 07/06/19 15:30 147 H 15 131/95 07/06/19 15:01 150 H 20 100 07/06/19 15:00 150 H 124/103 H 99 07/06/19 14:57 151 H 15 100 07/06/19 14:52 150 H 17 122/100 100 07/06/19 14:21 36.5 C 152 H 20 130/90 100 Pulse Ox 07/07/19 12:36 07/07/19 12:22 07/07/19 11:45 07/07/19 10:30 07/07/19 10:19 07/07/19 10:15 07/07/19 10:09 07/07/19 10:00 07/07/19 09:59 07/07/19 09:52 07/07/19 09:30 07/07/19 09:22 07/07/19 09:00 07/07/19 08:59 07/07/19 08:52 07/07/19 08:30 07/07/19 08:22 07/07/19 08:00 100 07/07/19 07:51 07/07/19 07:30 07/07/19 07:22 07/07/19 07:06 07/07/19 07:00 07/07/19 06:00 07/07/19 05:00 07/07/19 04:11 07/07/19 04:00 07/07/19 03:14 07/07/19 03:00 07/07/19 02:44 07/07/19 02:29 07/07/19 02:13 07/07/19 02:00 07/07/19 01:00 07/07/19 00:00 100 07/06/19 23:49 07/06/19 23:33 07/06/19 23:15 07/06/19 23:00 07/06/19 22:45 07/06/19 22:33 07/06/19 22:03 07/06/19 22:00 07/06/19 21:48 07/06/19 21:29 07/06/19 20:00 07/06/19 19:54 97 07/06/19 19:30 07/06/19 19:00 07/06/19 18:53 07/06/19 18:48 07/06/19 18:15 07/06/19 18:00 07/06/19 17:45 07/06/19 17:30 07/06/19 17:15 07/06/19 17:01 07/06/19 17:00 07/06/19 16:55 07/06/19 16:30 07/06/19 16:21 07/06/19 15:30 07/06/19 15:01 07/06/19 15:00 07/06/19 14:57 07/06/19 14:52 07/06/19 14:21 Pain Intensity Abdomen: Pain Intensity: 0 Transfer of Care Handoff Completed per policy Notes Mental Status: alert / awake / arousable Patient Amnestic to Procedure: Yes Nausea / Vomiting: adequately controlled Pain: adequately controlled Airway Patency, RR, SpO2: stable & adequate BP & HR: stable & adequate and see Notes below Hydration State: stable & adequate Anesthetic Complications: no major complications apparent and Pt Satisfied with anesthetic care Notes: The patient is awake and comfortable. His vitals are at his baseline. HR remains 140 in aflutter.
--- NOTE | 2019-07-07 14:16 | XCELERA ---
[id number] [id number]
[2019-07-07 14:31] LABS: Hematocrit (blood only) 25.5 % (42-52); Hemoglobin 8.7 g/dL (14.0-18.0)
[2019-07-07 14:48] LABS: BUN Creatinine Ratio 35.9 (10-20); Calcium 7.6 mg/dl (8.5-10.1); Creatinine Clr Calc Pharmacy 93.1 ml/min; Est GFR (African American) 110.3; Est GFR (Non-African American) 95.1; Potassium 4.5 mmol/L (3.5-5.1)
[2019-07-07] MEDS ORDERED: METOPROLOL TARTRATE 50 MG TAB PO ONE (15:45)
[2019-07-07] MEDS: cefTRIAXone SODIUM 2,000 MG in DEXTROSE 5% 50 ML IV SCH (18:10)
[2019-07-07] MEDS: PANTOprazole 40 MG TAB PO SCH (19:37)
[2019-07-07] MEDS: METOPROLOL TARTRATE 50 MG TAB PO SCH (19:37)
[2019-07-08 04:45] LABS: Hematocrit (blood only) 23.8 % (42-52); Mean Corpuscular Hemoglobin 26.8 pg (25-34); Mean Corpuscular Hgb Conc 33.6 g/dL (32-36); Mean Corpuscular Volume 79.9 fL (80-100); Platelet Count 165 K/uL (130-400); RDW Coefficient of Variation 16.5 % (11.5-14.5); RDW Standard Deviation 47.9 fL (36.4-46.3); Red Blood Count 2.98 M/uL (4.7-6.1); White Blood Count 5.29 K/uL (4.8-10.8)
[2019-07-08 05:03] LABS: BUN Creatinine Ratio 29.4 (10-20); Calcium 7.9 mg/dl (8.5-10.1); Creatinine Clr Calc Pharmacy 96.3 ml/min; Est GFR (African American) 111.8; Est GFR (Non-African American) 96.5; Potassium 4.2 mmol/L (3.5-5.1)
[2019-07-08 05:09] LABS: Albumin Globulin Ratio 0.7 (0.9-2); Bilirubin,Total 0.6 mg/dl (0.2-1); Globulin 2.8 gm/dl (2.5-4.0); Phosphorus 3.2 mg/dl (2.5-4.9); Total Protein 4.8 gm/dl (6.4-8.2)
[2019-07-08] MEDS: METOPROLOL TARTRATE 50 MG TAB PO SCH ×2 (07:23→21:22)
[2019-07-08] MEDS: PANTOprazole 40 MG TAB PO SCH ×2 (07:23→21:22)
[2019-07-08] MEDS: NICOTINE 7 MG/24 HR TDSY TD SCH (07:23)
--- NOTE | 2019-07-08 07:35 | Critical Care Progress Note ---
Date of Service July 08, 2019 Assessment & Plan (1) Admitted to intensive care unit: -- Acute blood loss anaemia Likely secondary to upper GI/variceal bleed in a patient with history of cirrhosis Patient got 2 units of PRBC after coming to the hospital Transfuse as needed to keep hemoglobin greater than 7 Monitor H&H. Stable Status post EGD 07/07/2019: Reflux esophagitis, gastritis. No active bleeding. No esophageal varices. Rocephin and octreotide discontinued. --A flutter with RVR Patient was recently diagnosed at [facility] with a flutter and the plan was for ablation Patient was supposed to be discharged on apixaban but patient states he has not been taking any medications at home Trell vasc is 1 Given noncompliance, is difficult decision to make. Cardiology on board follow recommendations. Patient was started on diltiazem drip yesterday to which he responded better than the esmolol. Is also been started on Lopressor 50 mg every 12 hours. --History of cirrhosis Likely from chronic hep C --History of IVDA States that he quit now --Active smoker Greater than [id number] smoking history Advised to quit --Prophylaxis PPI and IPC's --Random cortisol low In a patient with map is greater than 65 with random cortisol low Clinically insignificant He was started on hydrocortisone 50 every 8 We will discontinue today Plan: Patient hemodynamically stable. Patient was on 5 of diltiazem drip IV at the time of examination. It was stopped during the rounds and his heart rate was controlled. We will discontinue diltiazem drip and see how his heart rate is. Continue with Lopressor p.o. H&H is stable. Continue with p.o. Protonix. Patient is hemodynamically stable to be downgraded to a telemetry floor given the history of a flutter. I have personally spent 39 minutes of critical care time in the direct management of this patient. This is a life/limb threatening event. This includes time spent evaluating patient, direct bedside care, chart review, placing orders, interpretation of diagnostic studies, discussion with consultants, patient, and family members, as well as other required patient management activities. This time is exclusive of all separately billable procedures, and teaching time and separate from and in addition to any other critical care service time. Please note the above document was generated using voice recognition software. It may contain grammatical, syntax or spelling errors. (2) Atrial flutter: (3) Melena: (4) Acute GI bleeding: Admission and Anticipated Discharge Date Admission Date: July 06, 2019 Subjective Patient seen and examined at bedside. No acute distress, no adverse events overnight. Patient states the abdominal pain is significantly decreased. Patient having bowel movements. Normal more melena. Good appetite. No nausea or vomiting. Patient had EGD done on 07/07/2019 which showed esophagitis and gastritis no signs of any variceal bleed. No palpitations. No shortness of breath. Review of Systems Review of Systems: All systems reviewed & are unremarkable except as noted in HPI & below Physical Exam Physical Exam: Constitutional: No acute distress HEENT: EOMI, PERRLA Respiratory system: Decreased air entry bilaterally, no wheeze, no rhonchi, no crackles CVS: S1-S2 positive, no murmurs or gallops Abdomen: Soft, mild epigastric tenderness, no rebound, nondistended, positive bowel sounds x4 Extremities: +2 pulses bilaterally radialis/ dorsalis pedis, no cyanosis, no edema Neuro: Awake alert oriented x3 Psych: Normal mood and affect G/U: No Wilkins Skin: no rashes, warm and dry Lymphatic: no cervical or axillary lymphadenopathy Results & Data Results & Data ([facility]) Vital Signs (Past 12 Hours) Vital Signs Temp Pulse Pulse Resp BP BP Pulse Ox 07/08/19 06:00 81 16 120/53 L 95 07/08/19 05:00 71 18 110/70 97 07/08/19 04:00 36.5 C 78 12 96/69 L 95 07/08/19 03:00 84 18 92/61 L 94 07/08/19 02:00 69 14 97/61 L 96 07/08/19 01:00 69 18 91/52 L 94 07/08/19 00:00 36.8 C 70 18 84/54 L 95 07/07/19 23:00 73 18 86/51 L 96 07/07/19 22:00 75 16 94/64 L 97 07/07/19 21:14 71 19 90/65 L 98 07/07/19 21:00 70 21 98 07/07/19 20:30 70 19 97 07/07/19 20:14 71 22 97/70 L 98 07/07/19 20:00 36.7 C 71 19 98 Pulse Ox 07/08/19 06:00 07/08/19 05:00 07/08/19 04:00 07/08/19 03:00 07/08/19 02:00 07/08/19 01:00 07/08/19 00:00 97 07/07/19 23:00 07/07/19 22:00 07/07/19 21:14 07/07/19 21:00 07/07/19 20:30 07/07/19 20:14 07/07/19 20:00 07/08/19 04:22 07/08/19 04:22 Coding Level of Care Code Critical Care 1st 30-74 mins Diagnoses Admitted to intensive care unit Z78.9 Atrial flutter I48.92 Atrial flutter type: unspecified Melena K92.1 Acute GI bleeding K92.2 Time Spent (min) 39 (1) Atrial flutter Atrial flutter type: unspecified Qualified Code(s): I48.92 - Unspecified atrial flutter
[2019-07-08] MEDS: HYDROCORTISONE SOD 50 MG in SYRINGE 0 ML IV SCH (09:40)
--- NOTE | 2019-07-08 12:44 | Communication Note ---
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 Special stains are being completed prior to an official pathology report being issued. He did have a CT scan of the Abd/pelvis during this hospitalization, and will need a CT scan of the Chest for staging purposes. I will discuss the findings with him in detail this weekend, and he will need HemOnc consultation, most likely following his discharge.
[2019-07-08] MEDS: INSULIN ASPART 100 UNITS/ML 3 ML PEN SC SCH ×3 (12:56→21:29)
[2019-07-08] MEDS ORDERED: METOPROLOL TARTRATE 25 MG TAB PO ONE (12:59)
--- NOTE | 2019-07-08 14:08 | Hospitalist Progress Note ---
Date of Service July 08, 2019 Assessment & Plan (1) Acute GI bleeding: Patient status post 1 unit of packed red blood cells. Her hemoglobin is down from 8.7 to 8 this morning. Continue to monitor. Adenocarcinoma may also be contributing to bleed, will await final diagnosis. GI is following. (2) Cirrhosis: - Secondary to chronic hep C, reveiwed CT of -continue octreotide drip as above (3) Chronic hepatitis C: -Noted, chronic, likely secondary to IVDA - AST, ALT and Alk phos WNL (4) Atrial flutter: Patient seems very controlled now on multiple drips as noted. Cardiology following. Will need to monitor blood pressure as well. (5) H/O intravenous drug use in remission: -History of such, IV cocaine, denies active drug use on admission. (6) Tobacco use: - nicotine patch ordered - Currently on room air (7) Alcohol use: - Hx of such --pt reports last drink was 7 months ago however per [facility] [place] his last drink was prior to his admission there. He was drinking 3-8 beers twice a week per their records - monitor for any signs of withdrawal while admitted (8) DVT prophylaxis: -teds, no chemical ppx in the setting of GI bleed. CODE: FULL Admission and Anticipated Discharge Date Admission Date: July 06, 2019 Subjective Patient seen and examined this morning, late entry. Patient lying in bed, again denies any palpitations, shortness of breath, dyspnea on exertion. Patient is in atrial flutter with variable conduction. Heart rate was in the 80s. Blood pressure was stable. He was on diltiazem along with esmolol drips which appeared to be effective. Blood pressure was low normal at 94/71. I did note that the patient underwent EGD yesterday with evidence of severe esophagitis and likely bleeding but no variceal bleed. Also small nodule was biopsied, addendum from GI now notes that this is adenocarcinoma we are waiting for final biopsy results. In addition, patient was cleared by the critical care service to be transferred to telemetry bed. Physical Exam Constitutional: no acute distress Neck: trachea midline, no thyromegaly Respiratory: normal respiratory effort Auscultation: lungs clear to auscultation bilaterally; no crackles, no rales, no rhonchi and no wheezes Cardiovascular: Rate/Rhythm: regular rate and + irregularly irregular Heart Sounds: normal S1 and normal S2 Gastrointestinal (Abdomen): Inspection/Auscultation: abdomen normal to inspection Percussion/Palpation: abdomen soft; abdomen nontender, no guarding, abdomen not rigid and no hepatosplenomegaly Skin: no rashes, warm and dry Results & Data Results & Data ([facility]) Vital Signs (Past 12 Hours) Vital Signs Temp Pulse Pulse Resp BP BP Pulse Ox 07/08/19 08:30 90 23 99 07/08/19 08:14 36.9 C 119 H 28 H 94/71 L 100 07/08/19 08:00 90 07/08/19 07:14 96 H 22 96/62 L 92 07/08/19 06:00 81 16 120/53 L 95 07/08/19 05:00 71 18 110/70 97 07/08/19 04:00 36.5 C 78 12 96/69 L 95 07/08/19 03:00 84 18 92/61 L 94 PG Care Time/CCT Total # of Minutes Spent Total Time Spent with Patient: Total time spent is greater than 50% in coordination of care (as documented) at patient's floor/unit and/or counseling patient: Coding Level of Care Code 12535 Subseq Hosp Care Lvl 2 Diagnoses Acute GI bleeding K92.2 Cirrhosis K74.60 Chronic hepatitis C B18.2 Atrial flutter I48.92 Atrial flutter type: unspecified H/O intravenous drug use in remission Z87.898 Tobacco use Z72.0 Alcohol use Z72.89 DVT prophylaxis Z29.9 (1) Atrial flutter Atrial flutter type: unspecified Qualified Code(s): I48.92 - Unspecified atrial flutter
[2019-07-08] MEDS ORDERED: dilTIAZem HCL 120 MG CAPCR PO SCH (14:30)
--- NOTE | 2019-07-08 14:33 | Cardiology Progress Note ---
Date of Service July 08, 2019 Assessment & Plan (1) Atrial flutter: He has been in atrial flutter (possibly with some atrial fibrillation, hard to tell on telemetry) since admission here and likely has been in it for a number of months, the true duration is unknown. He has not been on anti coagulation in the past (although was advised to take Eliquis) and therefore it is risky to consider cardioversion. He does seem to tolerate the arrhythmia well, his echocardiogram shows at most mild LV dysfunction. We need better rate control, he is currently on beta blockade with metoprolol. Atrial flutter with 2-1 AV conduction can be difficult to rate control, he will likely need several medications. At this point I would consider backing off on the metoprolol, and adding diltiazem to his regimen. I would start low, 120mg daily, and titrate gradually. We don't need to be in a hurry to control HR. Over the long run treatment will be somewhat problematic. If we can control rate perhaps that will be sufficient (anticoagulation may be prohibitively risky especially given his low [id number] score, just 1 for hypertension). With that score and his GI bleed I would keep off anticoagulation for now at least. (2) Cardiomyopathy: He may have a mild cardiomyopathy, his echo suggests slight LV dysfunction however was done while he was quite ill and tachycardic. Most likely this is heart rate related and I would not pursue further evaluation for other causes. I would control HR and repeat the echo in about a month to see if it normalizes. He is on metoprolol tartrate, normally we use metoprolol succinate but in this case I suspect it wouldn't matter (we are treating rate primarily not the cardiomyopathy) but switching to succinate at discharge would be reasonable. Admission and Anticipated Discharge Date Admission Date: July 06, 2019 Subjective -H-e is laying supine in bed and denies symptoms, GI or cardiac. No awareness of his HR. He wants to go home. Physical Exam Physical Exam: Constitutional: Alert, cooperative and in no distress. HEENT: Unremarkable Neck: No jugular venous distention, carotid pulses are normal and equal bilaterally without bruits. Pulmonary: Clear to auscultation bilaterally. Cardiac: Irregular moderately rapid rhythm with no murmur, gallop or rub. Abdomen: Soft, nontender with normal bowel sounds. Extremities: No edema. Distal pulses intact. Neurologic: No focal findings. Gait is steady. Skin: No rash, ecchymoses or petechiae. Results & Data ([facility]) Vital Signs (Past 12 Hours) Vital Signs Temp Pulse Pulse Resp BP BP Pulse Ox 07/08/19 08:30 90 23 99 07/08/19 08:14 36.9 C 119 H 28 H 94/71 L 100 07/08/19 08:00 90 07/08/19 07:14 96 H 22 96/62 L 92 07/08/19 06:00 81 16 120/53 L 95 07/08/19 05:00 71 18 110/70 97 07/08/19 04:00 36.5 C 78 12 96/69 L 95 07/08/19 03:00 84 18 92/61 L 94 Diagnostic Findings Telemetry: Atrial flutter and possible atrial fibrillation at times, rate better this AM on IV diltiazem and oral beta blockade, now off diltiazem and HR is increasing. PG Care Time/CCT Total # of Minutes Spent Total Time Spent with Patient: Total time spent is greater than 50% in coordination of care (as documented) at patient's floor/unit and/or counseling patient: Coding Level of Care Code 48275 Subseq Hosp Care Lvl 3 Diagnoses Atrial flutter I48.92 Atrial flutter type: unspecified Cardiomyopathy I42.9 (1) Atrial flutter Atrial flutter type: unspecified Qualified Code(s): I48.92 - Unspecified atrial flutter
[2019-07-08] MEDS: ESMOLOL / NSS 2,500 MG/250 ML BAG IV SCH (14:46)
[2019-07-08] MEDS: dilTIAZem HCL 125 MG in DEXTROSE 5% 100 ML IV SCH (16:59)
[2019-07-08] MEDS: ALUMINUM/MAGNESIUM SUSP 30 ML UDC PO PRN (17:02)
[2019-07-08] MEDS ORDERED: METOPROLOL TARTRATE 25 MG TAB PO SCH (21:00)
[2019-07-09] MEDS: ALUMINUM/MAGNESIUM SUSP 30 ML UDC PO PRN (03:06)
--- NOTE | 2019-07-09 06:42 | Communication Note ---
Date of Service: July 09, 2019 Called by nursing regarding patient now requesting to leave the hospital. Reported to patient's bedside, patient is alert and orient to person, place, and time; understands that he is still requiring IV medication in order to keep his heart rate and rhythm controlled. Patient states, "I don't really care, what medication I am needing. I just want to be at home and spend whatever time I can with my boy." Resident Activity Tracking Resident Involvement: Resident Care Provided Care Provided: Adult Hospital Medicine
[2019-07-09] MEDS: METOPROLOL TARTRATE 50 MG TAB PO SCH (08:24)
[2019-07-09] MEDS: PANTOprazole 40 MG TAB PO SCH (08:24)
[2019-07-09] MEDS ORDERED: dilTIAZem HCL 180 MG CAPCR PO SCH (09:00)
[2019-07-09] MEDS ORDERED: ENALAPRIL MALEATE 10 MG TAB PO SCH (09:00)
--- NOTE | 2019-07-09 10:10 | Discharge Summary ---
Date of Service July 09, 2019 Admission HPI Per Admitting Provider This is a 54 yo M with PMHx of HTN and atrial flutter, chronic Hepatitis C, hx of IVDA with cocaine many years ago, etoh use, and currently smokes 3-4 cig per day but trying to quit who presents with worsening abdominal pain x few days. He notes he has had increased abdominal pain x1 month. It is chronic, waxing and waning, worse whenever he eats something, in the epigastric region, and admits to bouts of constipation within the past 1 week. He reports taking large quantities of Mylanta for heartburn and MiraLAX for constipation. He had a large bowel movement this morning which was dark and tarry. He denies any bright red blood per rectum, no history of known hemorrhoids, no blood seen with wiping. Patient was in [facility] several months ago for similar complaints to get an EGD and was scheduled for an colonoscopy for workup for food getting stuck in throat, nausea, and abdominal pain. He did not have the procedure secondary to elevated heart rate. Patient left AMA from [facility] without any follow-up as he describes his care was very poor, and did not want to see any of their staff in follow-up. Per outpatient records from [facility] he was admitted in March 09, 2019 to March 10 for episode of chest pain, hypertension, and indigestion found to have A. fib with RVR. He was supposed to start Lopressor and Cardizem p.o. at that time as well as Eliquis for possible ablation therapy and CHADs- VASC = 1. His hemoglobin at that time was 12.1. Admission Exam Per Admitting Provider General: awake, alert, no apparent distress, + fatigue, + wearing pajama pants which is patterned with beer mug images Head: Normocephalic, atraumatic ENT: PERRL, EOMI, no pharyngeal exudate, mucous membranes moist Chest: +diminished breath sounds bibasilarly, on room air, no adventitious breath sounds Cardiac: +Sinus tach with HR in 140s, no murmur, no JVD, normal peripheral pulses, good capillary refill Abdominal: NABS x 4 quadrants, soft, nondistended, + LUQ and epigastric region tenderness to palpation, no rebound, no guarding Extremities: Normal inspection, no peripheral edema or erythema, calfs nontender to palpation Psych: Normal mood and affect Neuro: AAO x 3, strength intact bilaterally and rated 5/5, no motor deficits, speech is clear, no peripheral sensory deficits Skin: no rash or erythema Principal Diagnosis 1. Acute GI bleeding secondary to esophagitis 2. Biopsy-proven adenocarcinoma of the esophagus 3. Cirrhosis secondary to alcohol abuse and hepatitis C 4. Atrial flutter 5. History of IV drug abuse Discharge Data Allergies Allergy/AdvReac Type Severity Reaction Status Date / Time No Known Allergies Allergy Verified 07/07/19 11:56 Consultations 07/06/19 16:13 ED Decision to Admit Stat 07/06/19 16:38 Consult Cardiology Routine 07/06/19 16:39 Consult Case Management - Discharge Planning Routine Consult Gastroenterology Routine 07/06/19 17:48 Consult Spearer Routine Procedures Performed Operation Date: 07/07/19 11:00 <No data on this case meets the specified criteria> Operation Date: 07/07/19 16:30 Actual Procedures p EGD Biopsy Cytology - Alexander Mccauley Case, DO Ordered Studies 07/06/19 15:44 CT abd pelvis IV con only Stat Hospital Course (1) Acute GI bleeding: Patient was admitted to the ICU are secondary to GI bleeding. He was given 2 units of packed red blood cells. GI was consulted and patient underwent emergent EGD on 07/06. Patient was found to have severe esophagitis with no ble eding. There was a small nodule on the distal esophagus which was biopsied. Pathology eventually found to be adenocarcinoma but final results are pending. CT of the chest was recommended by GI but I do not believe this was ever performed. Patient was given Protonix 40 mg p.o. twice daily. I was initially started on an octreotide drip for concern with with varices but this was held after the EGD. On the morning of 07/08, patient left hospital AMA. No discharge was prepared and no prescriptions are given to the patient. Patient was just prior to my arrival to the hospital and I did not have a chance to discuss his AMA status with him. (2) Cirrhosis: - Secondary to chronic hep C, reveiwed CT of -Octreotide was given with concern of GI bleeding, was discontinued after EGD. (3) Chronic hepatitis C: -Noted, chronic, likely secondary to IVDA - AST, ALT and Alk phos WNL (4) Atrial flutter: He was initially placed on an esmolol drip for atrial flutter. He continued to have very rapid heart rate and lower dose Cardizem was added. The seem to be effective. The patient remained in atrial fibrillation throughout his admission. Anticoagulation was held secondary to bleeding as noted above. (5) H/O intravenous drug use in remission: -History of such, IV cocaine, denies active drug use on admission. (6) Tobacco use: - nicotine patch ordered - Currently on room air (7) Alcohol use: - Hx of such --pt reports last drink was 7 months ago however [place] [facility] last drink was prior to his admission there. He was drinking 3-8 beers twice a week per their records - monitor for any signs of withdrawal while admitted (8) DVT prophylaxis: -teds, no chemical ppx in the setting of GI bleed. CODE: FULL Total Time Total Time Spent Total Time Spent (In Minutes): Less than 30 minutes was taken preparing the discharge of this patient left AMA. Discharge Plan Discharge Items Patient Disposition: Against Medical Advice Reason For Visit: GI BLEED Discharge Diagnosis: 1. Acute GI bleeding, likely secondary to gastritis 2. Esophageal nodule, found to be adenocarcinoma 3. Atrial flutter 4. History of cirrhosis secondary to alcohol use and hepatitis C 5. History of IV drug abuse Activity: As commented below Non-emergency contact: Primary Care Provider Call non-emergency contact if: you have any medication questions Follow-up/Referrals: Facundo Broderick PA-C [Primary Care Provider] - Diet: Regular Addtl Attending Provider Instructions: Patient left AMA, no prescriptions or instructions were given to the patient Pending Studies at Discharge: Yes Stand-Alone Forms: Work/School Release (ED), [facility], Smoking Cessation Medications and DC Order Prescriptions: Continued enalapril maleate 20 mg tablet 20 mg PO QAM RF: 0 Discharge Orders: Left Against Medical Advice (Routine); Ordered 07/09/19 Ordered By: Shorty Burciaga Admission Data Admit Date/Time: 07/06/19 16:37 Attending Provider: Shorty Burciaga Admit Provider: Monty Spivey Primary Care Provider: Facundo Broderick Other Providers: Monty Spivey Charles C. ; Alexander Massey ; Ayana Lawrence Other Interventions: Discharge Summary Assessment (RN) Last Done: 07/09/19 08:49 DC Date/Time DO NOT enter until pt leaves facility: 07/09/19 09:15 Coding Level of Care Code D/C Day Management <30 mins Diagnoses Acute GI bleeding K92.2 Cirrhosis K74.60 Chronic hepatitis C B18.2 Atrial flutter I48.92 Atrial flutter type: unspecified H/O intravenous drug use in remission Z87.898 Tobacco use Z72.0 Alcohol use Z72.89 DVT prophylaxis Z29.9
== END 2019-07-09 09:15 | disposition left against medical advice (07) | DRG 392 ==
LOC: ED 14:16 → SUATTDRO 16:37 → 1E 16:37 → 2S 07-08 11:17